=== PATIENT | male | born 1945 | race Caucasian/White ===

== ENCOUNTER 2022-09-02 19:12 | Inpatient (IN) ==
[2022-09-02] MEDS ORDERED: methylPREDNISolone 125 MG/2 ML VIAL IV STA (19:28)
[2022-09-02] MEDS ORDERED: diphenhydrAMINE 50 MG/ML VIAL IV STA (19:28)
[2022-09-02] MEDS ORDERED: diphenhydrAMINE 50 MG/ML VIAL ONE (19:32)
--- NOTE | 2022-09-02 19:36 | Emergency Department Note ---
Impression & Plan Cerebrovascular accident, Stroke-like symptoms, HTN (hypertension) ED Provider Note NAME: BEN DEWITT AGE: 77 SEX: M : 1945 ARRIVES VIA: Walk-In INFORMANT: Patient ED PROVIDER(S): Roni Milner DO CHIEF COMPLAINT: Left-sided weakness and paresthesias HPI: Patient is a 77-year-old male who presents ER for left-sided weakness and paresthesias. Patient notes that this started around 530 today. He is having some trouble ambulating. It has waxed and waned once. He notes his symptoms have nearly resolved at this point. Denies any chest pain or shortness of breath. No nausea, vomiting, or diarrhea. No dysuria, urgency, or frequency. PAST MEDICAL HISTORY:See Below PAST SURGICAL HISTORY:See Below FAMILY HISTORY:See Below SOCIAL HISTORY:See Below HOME MEDICATIONS:See Below ALLERGIES:See Below VITALS:See Below PHYSICAL EXAMINATION: GENERAL: Sitting up in bed, alert, well appearing, well nourished, no distress, non-toxic EYE EXAM: normal conjunctiva. PERRL and EOM's intact. OROPHARYNX: no exudate, no erythema, lips, buccal mucosa, and tongue normal and mucous membranes are moist NECK: supple, no nuchal rigidity, no adenopathy, non-tender LUNGS: Clear to auscultation. Normal chest wall mechanics HEART: no murmurs, S1 normal and S2 normal ABDOMEN: abdomen soft, non-tender, normo-active bowel sounds, no masses, no rebound or guarding. UPPER EXTREMITIES: upper extremities are grossly normal. LOWER EXTREMITIES: No pitting edema. NEURO EXAM: Normal sensorium, cranial nerves II-XII intact, normal speech, no weakness of arms, no weakness of legs. No drift. Finger to nose intact. Gross sensation intact. MEDICAL DECISION MAKING: Patient states that his 37-year-old male who presents ER for left-sided weakness and paresthesias which have been waxing and waning. Upon presentation he notes that have resolved. He was hypertensive. IV was established blood work was obtained. External records reviewed. BMP along LFTs bilirubin was unre markable. COVID was negative. CT of the as well as angios of the head neck showed a P1 segment of occlusion of the right LACE PINNER of undetermined time. Stroke alert was called and he was evaluated by [facility] telestroke neurology Dr. Kevan Platt. He recommended holding on TNK. Recommended permissive hypertension and oral Plavix. Patient was updated bedside. He was admitted to the hospitalist for further evaluation management and treatment. Triage Nursing notes reviewed. Limited review of prior medical records performed Vital Signs: reviewed and remarkable for no significant abnormalities Differential diagnosis: Differential Diagnosis includes but is not limited to ischemic Stroke, hemorrhagic stroke, bells palsy, mass, neoplasm, migraine headache, seizure, subarachnoid hemorrhage, TIA, and transient global amnesia. ER treatment provided: See below Diagnostics interpreted by me include EKG and cardiac monitoring as listed below: -Cardiac Monitoring: An order was placed for continuous cardiac monitoring. The monitor shows a rate of 90 with sinus rhythm. -ECG: Sinus rhythm rate 89 Normal axis PVC QTc 445 -Laboratory studies:Interpreted by me as stated above in MDM and shown below. Imaging studies: Xrays: As interpreted by me: Portable AP upright 1 view of the chest shows no focal infiltrate CTs show: CT angios of the head and neck as described above in MDM Consultation(s): As described in [facility] Procedures:none Critical Care: None Past Med/Surg History Medical History AAA (abdominal aortic aneurysm) "About 4 cm" --- follows Dr. Francisco [id number] CAD (coronary artery disease) S/p 4 vessel CABG 2001 Reports 100% occluded arteries x 2 per his most recent cath (2017 [facility]) medical management DDD (degenerative disc disease), lumbar DM type 2 (diabetes mellitus, type 2) IDDM Enlarged prostate History of cardiac murmur as a child History of depression HLD (hyperlipidemia) [place] (hard of hearing) HTN (hypertension) IBS (irritable bowel syndrome) Kidney stones Osteoarthritis TMJ (temporomandibular joint disorder) hx, several years ago, never locked. jaw pain and clicked at times. Surgical History History of ankle surgery Left History of appendectomy History of cardiac catheterization last cath ~02/2020 for [facility] -- no stents History of colonoscopy History of four vessel coronary artery bypass graft 2001 [facility] History of tonsillectomy Family History Other No family history of adverse response to anesthesia Social History (Updated 09/02/22 @ 21:37 by Brent Catalan MD) Smoking Status: Former smoker Second Hand Exposure: No; Do You Dip or Chew Tobacco: No; Hx Alcohol Use: Yes Hx Substance Use: No Preferred Language: Turkish Communication Ability: Effective 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 Beliefs That Will Affect Care: None Current Living Situation: Alone Feels Safe at Home: Yes Assistive Devices: Glasses Allergies Allergies Allergy/AdvReac Type Severity Reaction Status Date / Time Iodinated Contrast Media Allergy Unknown UNKNOWN Verified 09/02/22 19:50 PER [facility] MED LIST lisinopril AdvReac Intermediate Cough Verified 09/02/22 19:50 IVP DYE AdvReac Intermediate CHILLS/CAROLA Uncoded 09/02/22 19:50 RS Home Meds Home Medications Medication Instructions Recorded Confirmed amlodipine 5 mg tablet 5 mg PO HS 02/29/20 09/02/22 aspirin 81 mg tablet,delayed 81 mg PO HS 02/29/20 09/02/22 release (Ayanna Low Dose Aspirin) atorvastatin 80 mg tablet 80 mg PO HS 02/29/20 09/02/22 cholecalciferol (vitamin D3) 50 50 mcg PO HS 02/29/20 09/02/22 mcg (2,000 unit) tablet (Vitamin D3) cyanocobalamin (vitamin B-12) 2,000 mcg sublingual HS 02/29/20 09/02/22 1,000 mcg sublingual tablet insulin glargine 100 unit/mL (3 50 unit subcut HS 02/29/20 09/02/22 mL) subcutaneous pen (Basaglar KwikPen U-100 Insulin) losartan 100 mg tablet 100 mg PO HS 02/29/20 09/02/22 metformin 500 mg tablet,extended 1,000 mg PO HS 02/29/20 09/02/22 release 24 hr metoprolol succinate 25 mg 25 mg PO HS 02/29/20 09/02/22 tablet,extended release 24 hr omega 1-svp-tjz-fish oil 300 1 cap PO HS 02/29/20 09/02/22 mg-1,000 mg capsule (Fish Oil) coenzyme Q10 100 mg capsule 100 mg PO HS 09/02/22 09/02/22 (CoQ-10) fluticasone 250 mcg-salmeterol 50 1 inh inhalation BID 09/02/22 09/02/22 mcg/dose blistr powdr for inhalation (Advair Diskus) isosorbide mononitrate 30 mg 30 mg PO HS 09/02/22 09/02/22 tablet,extended release 24 hr ketoconazole 2 % topical cream 1 applic topical BID 09/02/22 09/02/22 multivitamin 1 tab PO HS 09/02/22 09/02/22 Results & Data (ED) Vital Signs Vital Signs - 24 hr 09/02/22 19:15 09/02/22 19:48 09/02/22 19:51 Temperature 37 C Temperature Source Temporal Artery Scan Pulse Rate 94 H 85 Pulse Rate [Radial] 82 Pulse Rate from SpO2 Sensor Pulse Rhythm Regular Pulse Rhythm [Radial] Regular Pulse Strength [Radial] Normal Respiratory Rate 17 20 22 Respiratory Effort / Characteristics Non-Labored Spontaneous Respiratory Depth Normal Respiratory Pattern Regular Blood Pressure 195/91 H Blood Pressure [Left Arm] 196/106 H Blood Pressure Mean 125 Blood Pressure Mean [Left Arm] 136 Blood Pressure Position [Left Arm] Lying Pulse Oximetry 95 97 96 Oxygen Delivery Method Room Air Room Air Room Air Sepsis Recent Fever Within 48 Hours No Sepsis New/Unexplained Change in Mental Status No Sepsis Action Taken by Nursing No Action Required 09/02/22 19:55 09/02/22 19:54 09/02/22 19:56 Temperature Temperature Source Pulse Rate 79 76 Pulse Rate [Radial] Pulse Rate from SpO2 Sensor 77 Pulse Rhythm Pulse Rhythm [Radial] Pulse Strength [Radial] Respiratory Rate 23 Respiratory Effort / Characteristics Respiratory Depth Respiratory Pattern Blood Pressure 168/86 H Blood Pressure [Left Arm] Blood Pressure Mean 136 Blood Pressure Mean [Left Arm] Blood Pressure Position [Left Arm] Pulse Oximetry 96 Oxygen Delivery Method Sepsis Recent Fever Within 48 Hours Sepsis New/Unexplained Change in Mental Status Sepsis Action Taken by Nursing 09/02/22 19:56 Temperature Temperature Source Pulse Rate 78 Pulse Rate [Radial] Pulse Rate from SpO2 Sensor 78 Pulse Rhythm Pulse Rhythm [Radial] Pulse Strength [Radial] Respiratory Rate 21 Respiratory Effort / Characteristics Respiratory Depth Respiratory Pattern Blood Pressure Blood Pressure [Left Arm] Blood Pressure Mean Blood Pressure Mean [Left Arm] Blood Pressure Position [Left Arm] Pulse Oximetry 96 Oxygen Delivery Method Sepsis Recent Fever Within 48 Hours Sepsis New/Unexplained Change in Mental Status Sepsis Action Taken by Nursing Laboratory Data 09/02/22 19:29 09/02/22 19:29 Lab Results 09/02/22 09/02/22 09/02/22 Range/Units 19:29 19:29 19:29 WBC 7.83 (4.8-10.8) K/ul RBC 4.67 L (4.70-6.10) M/uL Hgb 15.6 (14.0-18.0) g/dl Hct 43.0 (42.0-52.0) % MCV 92.1 (80.0-100.0) fL MCH 33.4 (25.0-34.0) pg MCHC 36.3 H (32.0-36.0) g/dL RDW Std Deviation 41.7 (36.4-46.3) fL RDW Coeff of Jean Pierre 12.5 (11.5-14.5) % Plt Count 153 (130-400) K/uL MPV 9.7 (9.4-12.4) fL PT 10.7 (9.0-12.0) Seconds INR 1.0 (0.9-1.1) APTT 24.6 (21.0-31.0) Seconds PTT Ratio 0.9 Sodium 139 (136-145) mmol/L Potassium 4.0 (3.5-5.1) mmol/L Chloride 108 H (98-107) mmol/L Carbon Dioxide 26 (21-32) mmol/L Anion Gap 5 (3-11) BUN 17 (6-23) mg/dl Creatinine 1.05 (0.6-1.4) mg/dl Est Cr Clr Drug Dosing Not Reportable Est GFR ( Amer) 78.4 ml/min Est GFR (Non-Af Amer) 67.7 ml/min BUN/Creatinine Ratio 16.2 (10-20) Glucose 119 H (70-99(Fasting)) mg/dl Calcium 9.9 (8.6-10.3) mg/dl Magnesium 2.0 (1.7-2.4) mg/dl Total Bilirubin 0.6 (0.2-1.0) mg/dl AST 25 (13-39) U/L ALT 31 (7-52) U/L Alkaline Phosphatase 91 (34-104) U/L Total Protein 7.3 (6.0-8.3) gm/dl Albumin 4.4 (3.4-5.0) gm/dl Globulin 2.9 (2.5-4.0) gm/dl Albumin/Globulin Ratio 1.5 (0.9-2) SARS-CoV-2, RNA, NAAT (NEGATIVE) 09/02/22 Range/Units 20:33 WBC (4.8-10.8) K/ul RBC (4.70-6.10) M/uL Hgb (14.0-18.0) g/dl Hct (42.0-52.0) % MCV (80.0-100.0) fL MCH (25.0-34.0) pg MCHC (32.0-36.0) g/dL RDW Std Deviation (36.4-46.3) fL RDW Coeff of Jean Pierre (11.5-14.5) % Plt Count (130-400) K/uL MPV (9.4-12.4) fL PT (9.0-12.0) Seconds INR (0.9-1.1) APTT (21.0-31.0) Seconds PTT Ratio Sodium (136-145) mmol/L Potassium (3.5-5.1) mmol/L Chloride (98-107) mmol/L Carbon Dioxide (21-32) mmol/L Anion Gap (3-11) BUN (6-23) mg/dl Creatinine (0.6-1.4) mg/dl Est Cr Clr Drug Dosing Est GFR ( Amer) ml/min Est GFR (Non-Af Amer) ml/min BUN/Creatinine Ratio (10-20) Glucose (70-99(Fasting)) mg/dl Calcium (8.6-10.3) mg/dl Magnesium (1.7-2.4) mg/dl Total Bilirubin (0.2-1.0) mg/dl AST (13-39) U/L ALT (7-52) U/L Alkaline Phosphatase (34-104) U/L Total Protein (6.0-8.3) gm/dl Albumin (3.4-5.0) gm/dl Globulin (2.5-4.0) gm/dl Albumin/Globulin Ratio (0.9-2) SARS-CoV-2, RNA, NAAT NEGATIVE (NEGATIVE) Administered Medications Discontinued Medications Clopidogrel Bisulfate (Clopidogrel Bisulfate 300 Mg Tab) 300 mg PO NOW STA Stop: 09/02/22 20:30 Last Admin: 09/02/22 20:35 Dose: 300 mg Documented By: Diphenhydramine HCl (Diphenhydramine 50 Mg/Ml Vial) 25 mg IV NOW STA Stop: 09/02/22 19:29 Last Admin: 09/02/22 19:35 Dose: 25 mg Documented By: SORAIDA Diphenhydramine HCl (Diphenhydramine 50 Mg/Ml Vial) Confirm Administered Dose 50 mg .ROUTE .STK-MED ONE Stop: 09/02/22 19:33 Last Admin: 09/02/22 19:35 Dose: Not Given Documented By: SORAIDA Ioversol (Optiray 320 100ml) 121 ml IV ONCE ONE Stop: 09/02/22 19:47 Last Admin: 09/02/22 19:46 Dose: 121 ml Documented By: FRANKI Methylprednisolone (Methylprednisolone 125 Mg/2 Ml Vial) 125 mg IV NOW STA Stop: 09/02/22 19:29 Last Admin: 09/02/22 19:35 Dose: 125 mg Documented By: SORAIDA Imaging Data Radiologist's Impression: Head CT 09/02/22 19:19 CT angio head w con, CT angio neck with con, CT head/brain wo con CLINICAL HISTORY: 77 years-old Male with cva. Acute stroke like symptoms with right-sided weakness COMPARISON STUDY: None TECHNIQUE: Unenhanced axial CT scan of the brain is performed. Subsequently, following the IV administration of 121 cc of Optiray, CT angiogram of the head and neck was performed from the aortic arch to the skull apex. Images are reviewed in the axial, sagittal, and coronal planes. 3-D MIPS images are created and assessed. IV contrast was administered without complication. All measu rements were obtained according to NASCET criteria. A dose lowering technique was utilized adhering to the principles of ALARA. CT DOSE: 1400.00 mGy.cm FINDINGS: CT BRAIN: There is no acute intracranial hemorrhage, midline shift, hydrocephalus, intracranial mass, territorial ischemia or abnormal extra-axial collections. Involutional changes with chronic microvascular ischemic disease. No abnormal intra-axial or extra-axial enhancement. Mastoid air cells and middle ear cavities are clear. No calvarial fracture. Paranasal sinuses are clear. CT ANGIOGRAM OF THE HEAD AND NECK: Median sternotomy. Atherosclerosis of the thoracic aortic arch. Patent common and internal carotid arteries with mild atherosclerosis of the carotid bulbs. Prominent calcified plaque of the petrous and cavernous segments is noted without high-grade stenosis or occlusion. The bilateral anterior and middle cerebral arteries are also patent. Calcified plaque of the V4 segment right artery causes 50% stenosis. The vertebral arteries are otherwise patent. The basilar and left posterior cerebral artery are also patent with moderate narrowing of the left P1 segment. Focal 1.5 cm occluded portion of the P1 segment right posterior cerebral artery, image 122. Distal reconstitution noted on image 114. There is no aneurysm, high-grade stenosis, or proximal branch occlusion identified. Dural sinuses appear patent. Lung apices are clear. No pneumothorax. 1.2 cm hypodense right thyroid nodule. No acute fracture. IMPRESSION: 1. No acute intracranial abnormality. 2. Age-indeterminate occlusion of the P1 segment right posterior cerebral artery with distal reconstitution. 3. Atherosclerosis without additional occlusion, high-grade stenosis, aneurysm or dissection. 4. Involutional changes with chronic microvascular ischemic disease. ACT 112: Negative or not required by law. The above report was generated using voice recognition software. It may contain grammatical, syntax or spelling errors. Electronically signed by: Ector Ansari M.D. 09/02/2022 8:05 PM Head CTA 09/02/22 19:22 CT angio head w con, CT angio neck with con, CT head/brain wo con CLINICAL HISTORY: 77 years-old Male with cva. Acute stroke like symptoms with right-sided weakness COMPARISON STUDY: None TECHNIQUE: Unenhanced axial CT scan of the brain is performed. Subsequently, following the IV administration of 121 cc of Optiray, CT angiogram of the head and neck was performed from the aortic arch to the skull apex. Images are reviewed in the axial, sagittal, and coronal planes. 3-D MIPS images are created and assessed. IV contrast was administered without complication. All measurements were obtained according to NASCET criteria. A dose lowering technique was utilized adhering to the principles of ALARA. CT DOSE: 1400.00 mGy.cm FINDINGS: CT BRAIN: There is no acute intracranial hemorrhage, midline shift, hydrocephalus, intracranial mass, territorial ischemia or abnormal extra-axial collections. Involutional changes with chronic microvascular ischemic disease. No abnormal intra-axial or extra-axial enhancement. Mastoid air cells and middle ear cavities are clear. No calvarial fracture. Paranasal sinuses are clear. CT ANGIOGRAM OF THE HEAD AND NECK: Median sternotomy. Atherosclerosis of the thoracic aortic arch. Patent common and internal carotid arteries with mild atherosclerosis of the carotid bulbs. Prominent calcified plaque of the petrous and cavernous segments is noted without high-grade stenosis or occlusion. The bilateral anterior and middle cerebral arteries are also patent. Calcified plaque of the V4 segment right artery causes 50% stenosis. The vertebral arteries are otherwise patent. The basilar and left posterior cerebral artery are also patent with moderate narrowing of the left P1 segment. Focal 1.5 cm occluded portion of the P1 segment right posterior cerebral artery, image 122. Distal reconstitution noted on image 114. There is no aneurysm, high-grade stenosis, or proximal branch occlusion identified. Dural sinuses appear patent. Lung apices are clear. No pneumothorax. 1.2 cm hypodense right thyroid nodule. No acute fracture. IMPRESSION: 1. No acute intracranial abnormality. 2. Age-indeterminate occlusion of the P1 segment right posterior cerebral artery with distal reconstitution. 3. Atherosclerosis without additional occlusion, high-grade stenosis, aneurysm or dissection. 4. Involutional changes with chronic microvascular ischemic disease. ACT 112: Negative or not required by law. The above report was generated using voice recognition software. It may contain grammatical, syntax or spelling errors. Electronically signed by: Ector Ansari M.D. 09/02/2022 8:05 PM Neck CTA 09/02/22 19:31 CT angio head w con, CT angio neck with con, CT head/brain wo con CLINICAL HISTORY: 77 years-old Male with cva. Acute stroke like symptoms with right-sided weakness COMPARISON STUDY: None TECHNIQUE: Unenhanced axial CT scan of the brain is performed. Subsequently, following the IV administration of 121 cc of Optiray, CT angiogram of the head and neck was performed from the aortic arch to the skull apex. Images are reviewed in the axial, sagittal, and coronal planes. 3-D MIPS images are created and assessed. IV contrast was administered without complication. All measurements were obtained according to NASCET criteria. A dose lowering technique was utilized adhering to the principles of ALARA. CT DOSE: 1400.00 mGy.cm FINDINGS: CT BRAIN: There is no acute intracranial hemorrhage, midline shift, hydrocephalus, intracranial mass, territorial ischemia or abnormal extra-axial collections. Involutional changes with chronic microvascular ischemic disease. No abnormal intra-axial or extra-axial enhancement. Mastoid air cells and middle ear cavities are clear. No calvarial fracture. Paranasal sinuses are clear. CT ANGIOGRAM OF THE HEAD AND NECK: Median sternotomy. Atherosclerosis of the thoracic aortic arch. Patent common and internal carotid arteries with mild atherosclerosis of the carotid bulbs. Prominent calcified plaque of the petrous and cavernous segments is noted without high-grade stenosis or occlusion. The bilateral anterior and middle cerebral arteries are also patent. Calcified plaque of the V4 segment right artery causes 50% stenosis. The vertebral arteries are otherwise patent. The basilar and left posterior cerebral artery are also patent with moderate narrow ing of the left P1 segment. Focal 1.5 cm occluded portion of the P1 segment right posterior cerebral artery, image 122. Distal reconstitution noted on image 114. There is no aneurysm, high-grade stenosis, or proximal branch occlusion identified. Dural sinuses appear patent. Lung apices are clear. No pneumothorax. 1.2 cm hypodense right thyroid nodule. No acute fracture. IMPRESSION: 1. No acute intracranial abnormality. 2. Age-indeterminate occlusion of the P1 segment right posterior cerebral artery with distal reconstitution. 3. Atherosclerosis without additional occlusion, high-grade stenosis, aneurysm or dissection. 4. Involutional changes with chronic microvascular ischemic disease. ACT 112: Negative or not required by law. The above report was generated using voice recognition software. It may contain grammatical, syntax or spelling errors. Electronically signed by: Ector Ansari M.D. 09/02/2022 8:05 PM Chest X-Ray 09/02/22 19:32 XR chest 1V portable HISTORY: 77 years-old Male cva acute strokelike symptoms COMPARISON: None TECHNIQUE: AP view of the chest FINDINGS: Cardiac silhouette is enlarged. Median sternotomy. Mild right hemidiaphragmatic elevation. No pneumothorax, pleural effusion, airspace consolidation or pulmonary edema. Bones appear grossly intact. IMPRESSION: No acute process. ACT 112: Negative or not required by law. The above report was generated using voice recognition software. It may contain grammatical, syntax or spelling errors. Electronically signed by: Ector Ansari M.D. 09/02/2022 7:54 PM Discharge Plan Visit Data Chief Complaint: Stroke/CVA Symptoms Stated Complaint: NUMB L SIDE,SLURRED SPEECH,L FACE NUMB ED Provider: Roni Milner Discharge Problem: Cerebrovascular accident, Stroke-like symptoms, HTN (hypertension) Patient Disposition: Admitted As Inpatient Discharge Instructions Interventions: ED Discharge Assessment Last Done: 09/02/22 21:47 Forms Stand Alone Forms: My [facility] Prescriptions Prescriptions: No Action atorvastatin 80 mg tablet 80 mg PO HS amlodipine 5 mg tablet 5 mg PO HS metoprolol succinate 25 mg tablet extended release 24 hr 25 mg PO HS metformin 500 mg tablet extended release 24 hr 1,000 mg PO HS aspirin [Ayanna Low Dose Aspirin] 81 mg Tablet,Delayed Release (Dr/Ec) 81 mg PO HS cyanocobalamin (vitamin B-12) 1,000 mcg Tablet, Sublingual 2,000 mcg SUBLINGUAL HS losartan 100 mg tablet 100 mg PO HS insulin glargine [Basaglar KwikPen U-100 Insulin] 100 unit/mL (3 mL) Insulin Pen 50 unit SUBCUT HS cholecalciferol (vitamin D3) [Vitamin D3] 50 mcg (2,000 unit) Tablet 50 mcg PO HS omega 6-yjh-yga-fish oil [Fish Oil] 300-1,000 mg Capsule 1 cap PO HS multivitamin Tablet 1 tab PO HS fluticasone propion-salmeterol [Advair Diskus] 250-50 mcg/dose blister with device 1 inh INHALATION BID isosorbide mononitrate 30 mg tablet extended release 24 hr 30 mg PO HS ketoconazole 2 % Cream 1 applic TOPICAL BID Rx Instructions: APPLY TO GROIN AREA coenzyme Q10 [CoQ-10] 100 mg Capsule 100 mg PO HS Referrals Referrals: Alok Amaya, [Primary Care Provider] -
[2022-09-02] MEDS ORDERED: OPTIRAY 320 100ml IV ONE (19:46)
[2022-09-02 19:51] LABS: Hemoglobin 15.6 g/dl (14.0-18.0); Mean Corpuscular Hemoglobin 33.4 pg (25.0-34.0); Mean Corpuscular Hgb Conc 36.3 g/dL (32.0-36.0); Mean Corpuscular Volume 92.1 fL (80.0-100.0); Mean Platelet Volume 9.7 fL (9.4-12.4); Platelet Count 153 K/uL (130-400); RDW Coefficient of Variation 12.5 % (11.5-14.5); RDW Standard Deviation 41.7 fL (36.4-46.3); Red Blood Count 4.67 M/uL (4.70-6.10); White Blood Count 7.83 K/ul (4.8-10.8)
--- NOTE | 2022-09-02 19:55 | XRay Report ---
XR chest 1V portable HISTORY: 77 years-old Male cva acute strokelike symptoms COMPARISON: None TECHNIQUE: AP view of the chest FINDINGS: Cardiac silhouette is enlarged. Median sternotomy. Mild right hemidiaphragmatic elevation. No pneumot horax, pleural effusion, airspace consolidation or pulmonary edema. Bones appear grossly intact. IMPRESSION: No acute process. ACT 112: Negative or not required by law. The above report was generated using voice recognition software. It may contain grammatical, syntax o r spelling errors. Electronically signed by: Ector Ansari M.D. 09/02/2022 7:54 PM
[2022-09-02 20:03] LABS: Alanine Aminotransferase 31 U/L (7-52); Albumin Globulin Ratio 1.5 (0.9-2); Albumin Level 4.4 gm/dl (3.4-5.0); Alkaline Phosphatase 91 U/L (34-104); Anion Gap 5 (3-11); Aspartate Aminotransferase 25 U/L (13-39); BUN Creatinine Ratio 16.2 (10-20); Bilirubin,Total 0.6 mg/dl (0.2-1.0); Blood Urea Nitrogen 17 mg/dl (6-23); Calcium 9.9 mg/dl (8.6-10.3); Carbon Dioxide 26 mmol/L (21-32); Chloride 108 mmol/L (98-107); Est GFR (African American) 78.4 ml/min; Est GFR (Non-African American) 67.7 ml/min; Globulin 2.9 gm/dl (2.5-4.0); Glucose 119 mg/dl (70-99(Fasting)); Sodium 139 mmol/L (136-145); Total Protein 7.3 gm/dl (6.0-8.3)
--- NOTE | 2022-09-02 20:07 | CT Scan Report ---
CT angio head w con, CT angio neck with con, CT head/brain wo con CLINICAL HISTORY: 77 years-old Male with cva. Acute stroke like symptoms with right-sided weakness COMPARISON STUDY: None TECHNIQUE: Unenhanced axial CT scan of the brain is performed. Subsequently, following the IV adminis tration of 121 cc of Optiray, CT angiogram of the head and neck was performed from the aortic arch to the skull apex. Images are reviewed in the axial, sagittal, and coronal planes. 3-D MIPS images are created and assessed. IV contrast was administered without complication. All measurements were obtain ed according to NASCET criteria. A dose lowering technique was utilized adhering to the principles of ALARA. CT DOSE: 1400.00 mGy.cm FINDINGS: CT BRAIN: There is no acute intracranial hemorrhage, midline shift, hydrocephalus, intracranial mass, territori al ischemia or abnormal extra-axial collections. Involutional changes with chronic microvascular isch emic disease. No abnormal intra-axial or extra-axial enhancement. Mastoid air cells and middle ear c avities are clear. No calvarial fracture. Paranasal sinuses are clear. CT ANGIOGRAM OF THE HEAD AND NECK: Median sternotomy. Atherosclerosis of the thoracic aortic arch. Patent common and internal carotid ar teries with mild atherosclerosis of the carotid bulbs. Prominent calcified plaque of the petrous and cavernous segments is noted without high-grade stenosis or occlusion. The bilateral anterior and midd le cerebral arteries are also patent. Calcified plaque of the V4 segment right artery causes 50% sten osis. The vertebral arteries are otherwise patent. The basilar and left posterior cerebral artery are also patent with moderate narrowing of the left P1 segment. Focal 1.5 cm occluded portion of the P1 segment right posterior cerebral artery, image 122. Distal reconstitution noted on image 114. There i s no aneurysm, high-grade stenosis, or proximal branch occlusion identified. Dural sinuses appear pat ent. Lung apices are clear. No pneumothorax. 1.2 cm hypodense right thyroid nodule. No acute fracture. IMPRESSION: 1. No acute intracranial abnormality. 2. Age-indeterminate occlusion of the P1 segment right posterior cerebral artery with distal reconsti tution. 3. Atherosclerosis without additional occlusion, high-grade stenosis, aneurysm or dissection. 4. Involutional changes with chronic microvascular ischemic disease. ACT 112: Negative or not required by law. The above report was generated using voice recognition software. It may contain grammatical, syntax o r spelling errors. Electronically signed by: Ector Ansari M.D. 09/02/2022 8:05 PM
[2022-09-02 20:17] LABS: Partial Thromboplastin Ratio 0.9; Partial Thromboplastin Time 24.6 Seconds (21.0-31.0); Prothrombin Time 10.7 Seconds (9.0-12.0)
[2022-09-02] MEDS ORDERED: CLOPIDOGREL BISULFATE 300 MG TAB PO STA (20:29)
--- NOTE | 2022-09-02 21:45 | History & Physical Report ---
Date of Service September 02, 2022 Assessment & Plan (1) Stroke-like symptoms: Plan: 77-year-old male with past med significant for type 2 diabetes, hyperlipidemia, AAA, hypertension, exertional angina, s/p aortocoronary bypass, chronic diastolic CHF, presents with strokelike symptoms which are resolved now status s/p stroke alert. As per ER stroke neurology recommended MRI scan bedrest, permissive hypertension and was loaded with Plavix. Strokelike symptoms Load with Plavix which will be continued Patient on aspirin and statin We will will do stroke protocol We will follow MRI scan and echocardiogram Neuro consult in a.m. Speech evaluation PT OT evaluation Close monitoring telemetry. Hypertension We will hold amlodipine and losartan to allow for permissive hypertension Continue metoprolol with holding parameters Monitor the blood pressure. Type 2 diabetes We will follow HbA1c levels We will cut back Lantus to 25 units nightly as patient is n.p.o. Insulin sliding scale Pharmacy consult. CAD stable S/p aortocoronary bypass On aspirin statin and beta-vaughn Hyperlipidemia On high-dose statin We will follow fasting lipid profile. Chronic diastolic CHF We will monitor for volume overload. DVT prophylaxis SCDs. Disposition Close monitoring telemetry. Full code. History of Present Illness Chief Complaint: Strokelike symptoms Primary Care Provider: Alok Amaya, This is 77-year-old male with past medical history significant for type 2 diabetes, hyperlipidemia, AAA, hypertension, exertional angina, chronic diastolic CHF, B12 deficiency, vitamin D deficiency, s/p aortocoronary bypass, asbestos exposure, history of tobacco abuse, history of positive PPD presents with paresthesias and numbness on the left side of the body started at 5:30 PM today and lasted for about half hour. It came back again but again resolved. Since last 1 week he is also having some left eye vision problems on and off but the vision is okay now. During the episode he felt some weakness in the left side but thinks he can ambulate okay now. Couple of days ago he had headache but got better now. When he bends down he has some lightheadedness. No earaches, no runny nose, no sore throat, no fevers, no difficulty swallowing. No fever or chills. No chest pain or shortness of breath. No nausea or vomitings, no abdominal pain, normal bowel and bladder movements. No swelling in the legs. Currently resting comfortably and hemodynamically stable Allergies Allergy/AdvReac Type Severity Reaction Status Date / Time Iodinated Contrast Media Allergy Unknown UNKNOWN Verified 09/02/22 19:50 PER [facility] MED LIST lisinopril AdvReac Intermediate Cough Verified 09/02/22 19:50 IVP DYE AdvReac Intermediate CHILLS/CAROLA Uncoded 09/02/22 19:50 RS Home Medications Medication Instructions Recorded Confirmed Type amlodipine 5 mg tablet 5 mg PO HS 02/29/20 09/02/22 History aspirin 81 mg tablet,delayed 81 mg PO HS 02/29/20 09/02/22 History release (Ayanna Low Dose Aspirin) atorvastatin 80 mg tablet 80 mg PO HS 02/29/20 09/02/22 History cholecalciferol (vitamin D3) 50 50 mcg PO HS 02/29/20 09/02/22 History mcg (2,000 unit) tablet (Vitamin D3) cyanocobalamin (vitamin B-12) 2,000 mcg sublingual HS 02/29/20 09/02/22 History 1,000 mcg sublingual tablet insulin glargine 100 unit/mL (3 50 unit subcut HS 02/29/20 09/02/22 History mL) subcutaneous pen (Basaglar KwikPen U-100 Insulin) losartan 100 mg tablet 100 mg PO HS 02/29/20 09/02/22 History metformin 500 mg tablet,extended 1,000 mg PO HS 02/29/20 09/02/22 History release 24 hr metoprolol succinate 25 mg 25 mg PO HS 02/29/20 09/02/22 History tablet,extended release 24 hr omega 9-[id number]-[id number]-fish oil 300 1 cap PO HS 02/29/20 09/02/22 History mg-1,000 mg capsule (Fish Oil) coenzyme Q10 100 mg capsule 100 mg PO HS 09/02/22 09/02/22 History (CoQ-10) fluticasone 250 mcg-salmeterol 50 1 inh inhalation BID 09/02/22 09/02/22 History mcg/dose blistr powdr for inhalation (Advair Diskus) isosorbide mononitrate 30 mg 30 mg PO HS 09/02/22 09/02/22 History tablet,extended release 24 hr ketoconazole 2 % topical cream 1 applic topical BID 09/02/22 09/02/22 History multivitamin 1 tab PO HS 09/02/22 09/02/22 History Past Med/Surg History Medical History AAA (abdominal aortic aneurysm) "About 4 cm" --- follows Dr. Francisco [id number] CAD (coronary artery disease) S/p 4 vessel CABG 2001 Reports 100% occluded arteries x 2 per his most recent cath (2017 [facility]) medical management DDD (degenerative disc disease), lumbar DM type 2 (diabetes mellitus, type 2) IDDM Enlarged prostate History of cardiac murmur as a child History of depression HLD (hyperlipidemia) [employer] (hard of hearing) HTN (hypertension) IBS (irritable bowel syndrome) Kidney stones Osteoarthritis TMJ (temporomandibular joint disorder) hx, several years ago, never locked. jaw pain and clicked at times. Surgical History History of ankle surgery Left History of appendectomy History of cardiac catheterization last cath ~02/2020 for [facility] -- no stents History of colonoscopy History of four vessel coronary artery bypass graft 2001 [facility] History of tonsillectomy Family History Other No family history of adverse response to anesthesia Social History (Updated 09/02/22 @ 21:37 by Bretn Catalan MD) Smoking Status: Former smoker Second Hand Exposure: No; Do You Dip or Chew Tobacco: No; Hx Alcohol Use: Yes Hx Substance Use: No Preferred Language: Colombian Communication Ability: Effective Enamel Shader Required: No Beliefs That Will Affect Care: None Current Living Situation: Alone Feels Safe at Home: Yes Assistive Devices: Glasses Review of Systems Review of Systems: All systems reviewed & are unremarkable except as noted in Subjective Physical Exam Physical Exam: NEEDS EDITING General- adult Head- atraumatic Eyes- PERRL, EOMI, ENT- oropharynx clear Neck- supple, no JVD, ; carotids +2/2, no bruits appreciated Lungs- clear to auscultation and percussion Heart- regular rhythm; no murmur, no gallop, no rub appreciated Abdomen- normal bowel sounds, soft, nontender, no masses or hepatosplenomegaly Extremities- no pretibial edema, no calf tenderness; peripheral pulses intact Neuro- alert, oriented x 3; PERRL, EOMI; no facial palsy; no dysarthria; motor 5/5 bilaterally; coordniation of movements ormal, no pronator drift, sensations intact, can raise and hold lower extremities Skin- warm & dry Results & Data Results & Data Vital Signs (Past 12 Hours) Vital Signs Temp Pulse Pulse Resp BP BP Pulse Ox 09/02/22 19:56 78 21 96 09/02/22 19:56 168/86 H 09/02/22 19:54 76 23 96 09/02/22 19:55 79 09/02/22 19:51 82 22 196/106 H 96 09/02/22 19:48 85 20 97 09/02/22 19:15 37 C 94 H 17 195/91 H 95 O2 Del Method 09/02/22 19:56 09/02/22 19:56 09/02/22 19:54 09/02/22 19:55 09/02/22 19:51 Room Air 09/02/22 19:48 Room Air 09/02/22 19:15 Room Air Diagnostic Findings Laboratory Results WBC 7.83 K/ul (4.8-10.8) 09/02/22 19: RBC 4.67 M/uL (4.70-6.10) L 09/02/22 19:29 Hgb 15.6 g/dl (14.0-18.0) 09/02/22 19:29 Hct 43.0 % (42.0-52.0) 09/02/22 19: MCV 92.1 fL (80.0-100.0) 09/02/22 19:29 MCH 33.4 pg (25.0-34.0) 09/02/22 19: MCHC 36.3 g/dL (32.0-36.0) H 09/02/22 19:29 RDW Std Deviation 41.7 fL (36.4-46.3) 09/02/22 19: RDW Coeff of Jean Pierre 12.5 % (11.5-14.5) 09/02/22 19: Plt Count 153 K/uL (130-400) 09/02/22 19:29 MPV 9.7 fL (9.4-12.4) 09/02/22 19: PT 10.7 Seconds (9.0-12.0) 09/02/22 19: INR 1.0 (0.9-1.1) 09/02/22 19: APTT 24.6 Seconds (21.0-31.0) 09/02/22: PTT Ratio 0.9 09/02/22 19: Sodium 139 mmol/L (136-145) 09/02/22 19: Potassium 4.0 mmol/L (3.5-5.1) 09/02/22: Chloride 108 mmol/L (98-107) H 09/02/22 19: Carbon Dioxide 26 mmol/L (21-32) 09/02/22: Anion Gap 5 (3-11) 09/02/22: BUN 17 mg/dl (6-23) 09/02/22: Creatinine 1.05 mg/dl (0.6-1.4) 09/02/22: Est Cr Clr Drug Dosing Not Reportable 09/02/22: Est GFR ( Amer) 78.4 ml/min 09/02/22: Est GFR (Non-Af Amer) 67.7 ml/min 09/02/22: BUN/Creatinine Ratio 16.2 (10-20) 09/02/22 19: Glucose 119 mg/dl (70-99(Fasting)) H 09/02/22 19:29 Calcium 9.9 mg/dl (8.6-10.3) 09/02/22: Magnesium 2.0 mg/dl (1.7-2.4) 09/02/22: Total Bilirubin 0.6 mg/dl (0.2-1.0) 09/02/22 19: AST 25 U/L (13-39) 09/02/22 19:29 ALT 31 U/L (7-52) 09/02/22 19:29 Alkaline Phosphatase 91 U/L (34-104) 09/02/22: Total Protein 7.3 gm/dl (6.0-8.3) 09/02/22 19:29 Albumin 4.4 gm/dl (3.4-5.0) 09/02/22 19:29 Globulin 2.9 gm/dl (2.5-4.0) 09/02/22 19:29 Albumin/Globulin Ratio 1.5 (0.9-2) 09/02/22 19:29 SARS-CoV-2, RNA, NAAT NEGATIVE (NEGATIVE) 09/02/22 20:[address] 09/02/22 19:19 CT angio head w con, CT angio neck with con, CT head/brain wo con CLINICAL HISTORY: 77 years-old Male with cva. Acute stroke like symptoms with right-sided weakness COMPARISON STUDY: None TECHNIQUE: Unenhanced axial CT scan of the brain is performed. Subsequently, following the IV administration of 121 cc of Optiray, CT angiogram of the head and neck was performed from the aortic arch to the skull apex. Images are reviewed in the axial, sagittal, and coronal planes. 3-D MIPS images are created and assessed. IV contrast was administered without complication. All measurements were obtained according to NASCET criteria. A dose lowering technique was utilized adhering to the principles of ALARA. CT DOSE: 1400.00 mGy.cm FINDINGS: CT BRAIN: There is no acute intracranial hemorrhage, midline shift, hydrocephalus, intracranial mass, territorial ischemia or abnormal extra-axial collections. Involutional changes with chronic microvascular ischemic disease. No abnormal intra-axial or extra-axial enhancement. Mastoid air cells and middle ear cavities are clear. No calvarial fracture. Paranasal sinuses are clear. CT ANGIOGRAM OF THE HEAD AND NECK: Median sternotomy. Atherosclerosis of the thoracic aortic arch. Patent common and internal carotid arteries with mild atherosclerosis of the carotid bulbs. Prominent calcified plaque of the petrous and cavernous segments is noted without high-grade stenosis or occlusion. The bilateral anterior and middle cerebral arteries are also patent. Calcified plaque of the V4 segment right artery causes 50% stenosis. The vertebral arteries are otherwise patent. The basilar and left posterior cerebral artery are also patent with moderate narrowing of the left P1 segment. Focal 1.5 cm occluded portion of the P1 segment right posterior cerebral artery, image 122. Distal reconstitution noted on image 114. There is no aneurysm, high-grade stenosis, or proximal branch occlusion identified. Dural sinuses appear patent. Lung apices are clear. No pneumothorax. 1.2 cm hypodense right thyroid nodule. No acute fracture. IMPRESSION: 1. No acute intracranial abnormality. 2. Age-indeterminate occlusion of the P1 segment right posterior cerebral artery with distal reconstitution. 3. Atherosclerosis without additional occlusion, high-grade stenosis, aneurysm or dissection. 4. Involutional changes with chronic microvascular ischemic disease. ACT 112: Negative or not required by law. The above report was generated using voice recognition software. It may contain grammatical, syntax or spelling errors. Electronically signed by: Ector Ansari M.D. 09/02/2022 8:05 PM Head CTA 09/02/22 19:22 CT angio head w con, CT angio neck with con, CT head/brain wo con CLINICAL HISTORY: 77 years-old Male with cva. Acute stroke like symptoms with right-sided weakness COMPARISON STUDY: None TECHNIQUE: Unenhanced axial CT scan of the brain is performed. Subsequently, following the IV administration of 121 cc of Optiray, CT angiogram of the head and neck was performed from the aortic arch to the skull apex. Images are reviewed in the axial, sagittal, and coronal planes. 3-D MIPS images are created and assessed. IV contrast was administered without complication. All measurements were obtained according to NASCET criteria. A dose lowering technique was utilized adhering to the principles of ALARA. CT DOSE: 1400.00 mGy.cm FINDINGS: CT BRAIN: There is no acute intracranial hemorrhage, midline shift, hydrocephalus, intracranial mass, territorial ischemia or abnormal extra-axial collections. Involutional changes with chronic microvascular ischemic disease. No abnormal intra-axial or extra-axial enhancement. Mastoid air cells and middle ear cavities are clear. No calvarial fracture. Paranasal sinuses are clear. CT ANGIOGRAM OF THE HEAD AND NECK: Median sternotomy. Atherosclerosis of the thoracic aortic arch. Patent common and internal carotid arteries with mild atherosclerosis of the carotid bulbs. Prominent calcified plaque of the petrous and cavernous segments is noted without high-grade stenosis or occlusion. The bilateral anterior and middle cerebral arteries are also patent. Calcified plaque of the V4 segment right artery causes 50% stenosis. The vertebral arteries are otherwise patent. The basilar and left posterior cerebral artery are also patent with moderate narrowing of the left P1 segment. Focal 1.5 cm occluded portion of the P1 segment right posterior cerebral artery, image 122. Distal reconstitution noted on image 114. There is no aneurysm, high-grade stenosis, or proximal branch occlusion identified. Dural sinuses appear patent. Lung apices are clear. No pneumothorax. 1.2 cm hypodense right thyroid nodule. No acute fracture. IMPRESSION: 1. No acute intracranial abnormality. 2. Age-indeterminate occlusion of the P1 segment right posterior cerebral artery with distal reconstitution. 3. Atherosclerosis without additional occlusion, high-grade stenosis, aneurysm or dissection. 4. Involutional changes with chronic microvascular ischemic disease. ACT 112: Negative or not required by law. The above report was generated using voice recognition software. It may contain grammatical, syntax or spelling errors. Electronically signed by: Ector Ansari M.D. 09/02/2022 8:05 PM Neck CTA 09/02/22 19:31 CT angio head w con, CT angio neck with con, CT head/brain wo con CLINICAL HISTORY: 77 years-old Male with cva. Acute stroke like symptoms with right-sided weakness COMPARISON STUDY: None TECHNIQUE: Unenhanced axial CT scan of the brain is performed. Subsequently, following the IV administration of 121 cc of Optiray, CT angiogram of the head and neck was performed from the aortic arch to the skull apex. Images are reviewed in the axial, sagittal, and coronal planes. 3-D MIPS images are created and assessed. IV contrast was administered without complication. All measurements were obtained according to NASCET criteria. A dose lowering technique was utilized adhering to the principles of ALARA. CT DOSE: 1400.00 mGy.cm FINDINGS: CT BRAIN: There is no acute intracranial hemorrhage, midline shift, hydrocephalus, intracranial mass, territorial ischemia or abnormal extra-axial collections. Involutional changes with chronic microvascular ischemic disease. No abnormal intra-axial or extra-axial enhancement. Mastoid air cells and middle ear cavities are clear. No calvarial fracture. Paranasal sinuses are clear. CT ANGIOGRAM OF THE HEAD AND NECK: Median sternotomy. Atherosclerosis of the thoracic aortic arch. Patent common and internal carotid arteries with mild atherosclerosis of the carotid bulbs. Prominent calcified plaque of the petrous and cavernous segments is noted without high-grade stenosis or occlusion. The bilateral anterior and middle cerebral arteries are also patent. Calcified plaque of the V4 segment right artery causes 50% stenosis. The vertebral arteries are otherwise patent. The basilar and left posterior cerebral artery are also patent with moderate narrowing of the left P1 segment. Focal 1.5 cm occluded portion of the P1 segment right posterior cerebral artery, image 122. Distal reconstitution noted on image 114. There is no aneurysm, high-grade stenosis, or proximal branch occlusion identified. Dural sinuses appear patent. Lung apices are clear. No pneumothorax. 1.2 cm hypodense right thyroid nodule. No acute fracture. IMPRESSION: 1. No acute intracranial abnormality. 2. Age-indeterminate occlusion of the P1 segment right posterior cerebral artery with distal reconstitution. 3. Atherosclerosis without additional occlusion, high-grade stenosis, aneurysm or dissection. 4. Involutional changes with chronic microvascular ischemic disease. ACT 112: Negative or not required by law. The above report was generated using voice recognition software. It may contain grammatical, syntax or spelling errors. Electronically signed by: Ector Ansari M.D. 09/02/2022 8:05 PM Chest X-Ray 09/02/22 19:32 XR chest 1V portable HISTORY: 77 years-old Male cva acute strokelike symptoms COMPARISON: None TECHNIQUE: AP view of the chest FINDINGS: Cardiac silhouette is enlarged. Median sternotomy. Mild right hemidiaphragmatic elevation. No pneumothorax, pleural effusion, airspace consolidation or pulmonary edema. Bones appear grossly intact. IMPRESSION: No acute process. ACT 112: Negative or not required by law. The above report was generated using voice recognition software. It may contain grammatical, syntax or spelling errors. Electronically signed by: Ector Ansari M.D. 09/02/2022 7:54 PM ECG Additional Comments: ECG sinus rhythm with occasional PVCs at a rate of [address] changes seen Code Status & VTE Plan VTE Prophylaxis Plan VTE Prophylaxis will be ordered: Yes
[2022-09-02] MEDS ORDERED: GLUCAGON FOR INJ 1 MG VIAL SQ PRN (23:05)
[2022-09-02] MEDS ORDERED: ASPIRIN 81 MG ECTAB PO SCH (23:05)
[2022-09-02] MEDS ORDERED: PHARMACY GLYCEMIC MGMT CONSULT PRN (23:05)
[2022-09-02] MEDS ORDERED: CYANOCOBALAMIN (B-12) 2,500 MCG TABLET SL SCH (23:05)
[2022-09-02] MEDS ORDERED: POLYETHYLENE (MIRALAX) 17 GM PACK PO PRN (23:05)
[2022-09-02] MEDS ORDERED: GLUCOSE 40% GEL 15 GM TUBE PO PRN (23:05)
[2022-09-02] MEDS ORDERED: GLUCOSE 10 TAB/TUBE PO PRN (23:05)
[2022-09-02] MEDS ORDERED: CARBOHYDRATES FOR HYPOGLYCEMIA PO PRN (23:05)
[2022-09-02] MEDS ORDERED: ATORVASTATIN 40 MG TAB PO SCH (23:05)
[2022-09-02] MEDS ORDERED: NITROGLYCERIN SL 0.4 MG/TAB TAB SL PRN (23:05)
[2022-09-02] MEDS ORDERED: ACETAMINOPHEN 325 MG TAB PO PRN (23:05)
[2022-09-02] MEDS ORDERED: PHARMACIST DISCHARGE MED REC CONSULT PRN (23:05)
[2022-09-02] MEDS ORDERED: DEXTROSE 50% 50 ML SYRINGE IV PRN (23:05)
[2022-09-03] MEDS ORDERED: GADOBUTROL 10ML VIAL IV ONE (00:23)
[2022-09-03] MEDS: SODIUM CHLORIDE 0.9% 1000ML 1,000 ML IV SCH ×2 (00:37→07:41)
[2022-09-03] MEDS: INSULIN ASPART PER UNIT CHARGE SC SCH ×2 (00:49→06:02)
--- NOTE | 2022-09-03 01:05 | Magnetic Resonance Report ---
Exam(s): MRI HEAD W/WO Contrast IV Amt: 10cc gadavist EXAM: MR Head Without and With Intravenous Contrast CLINICAL HISTORY: Reason for exam: stroke like symptoms. TECHNIQUE: Magnetic resonance images of the head/brain without and with intravenous contrast in multiple planes. CONTRAST: Patient received 10cc gadavist of IV contrast COMPARISON: No relevant prior studies available. FINDINGS: Brain: Mild periventricular white matter changes, likely related to chronic microangiopathy. No hemorrhage. No acute infarct. Ventricles: Unremarkable. No ventriculomegaly. Bones/joints: Unremarkable. Sinuses: Unremarkable as visualized. No acute sinusitis. Mastoid air cells: Unremarkable as visualized. No mastoid effusion. Orbits: Unremarkable as visualized. IMPRESSION: Mild periventricular white matter changes, likely related to chronic microangiopathy. Electronically signed by: Paul Fields M.D. 09/03/22 01:04 AM
[2022-09-03 06:14] LABS: Hematocrit (blood only) 40.8 % (42.0-52.0); Hemoglobin 14.9 g/dl (14.0-18.0); Mean Corpuscular Hemoglobin 32.8 pg (25.0-34.0); Mean Corpuscular Hgb Conc 36.5 g/dL (32.0-36.0); Mean Corpuscular Volume 89.9 fL (80.0-100.0); Mean Platelet Volume 10.1 fL (9.4-12.4); Platelet Count 141 K/uL (130-400); RDW Coefficient of Variation 12.3 % (11.5-14.5); RDW Standard Deviation 40.2 fL (36.4-46.3); Red Blood Count 4.54 M/uL (4.70-6.10); White Blood Count 8.39 K/ul (4.8-10.8)
[2022-09-03 06:35] LABS: Immature Granulocytes # (auto) 0.04 K/uL (0.01-0.20); Immature Granulocytes % (auto) 0.5 %; Lymphocytes % (auto) 8.3 %; Monocytes # (auto) 0.04 K/uL (0.11-0.59); Monocytes % (auto) 0.5 %; Neutrophils # (auto) 7.61 K/uL (1.40-6.50); Neutrophils % (auto) 90.7 %
[2022-09-03 06:37] LABS: BUN Creatinine Ratio 19.8 (10-20); Calcium 8.9 mg/dl (8.6-10.3); Chol HDL Ratio 3.6 (0-5); Creatinine Clr Calc Pharmacy 83.8 ml/min; Est GFR (African American) 93.2 ml/min; Est GFR (Non-African American) 80.4 ml/min; Potassium 4.2 mmol/L (3.5-5.1)
[2022-09-03 08:05] LABS: Estimated Average Glucose 131 mg/dl; Hemoglobin A1C 6.2 % (4.5-5.6)
--- NOTE | 2022-09-03 08:50 | Hospitalist Progress Note ---
Date of Service September 03, 2022 Assessment & Plan (1) Stroke-like symptoms: Plan: 77-year-old male with past med significant for type 2 diabetes, hyperlipidemia, AAA, hypertension, exertional angina, s/p aortocoronary bypass, chronic diastolic CHF, presents with strokelike symptoms which are resolved now status s/p stroke alert. As per ER stroke neurology recommended MRI scan bedrest, permissive hypertension and was loaded with Plavix. Strokelike symptoms Load with Plavix which will be continued Patient on aspirin and statin We will will do stroke protocol MRI brain shows small R occipital stroke (R RAW STOCK DRIER TENDER stroke) - discussed w/ neuro logy Echocardiogram obtained EF 55 to 60%. There is mild concentric LVH. Aortic valve sclerosis mild, without significant aortic valvular stenosis. There is mild mitral regurg. There is mild tricuspid regurg. Doppler findings do not suggest pulmonary hypertension. Injection of contrast documented no interatrial shunt. Neurology consulted - Patient presents with left visual field symptoms and L sided numbness corresponding to his R RAW STOCK DRIER TENDER stroke seen on MRI secondary to RAW STOCK DRIER TENDER atherosclerotic disease. Do not suspect embolism. Recommend continue DAPT for 21 days, then plavix 75mg daily thereafter. Continue lipitor 80mg daily with goal LDL of <70. Can work toward discharge with plan for followup in 6-8 weeks with neurology. Speech evaluation PT OT evaluation - recommend outpt PT for balance training Close monitoring telemetry. Hypertension Held amlodipine and losartan to allow for permissive hypertension on admission Continue metoprolol with holding parameters Monitor the blood pressure. Type 2 diabetes Current HbA1c levels 6.2% Cont. lantus + Insulin sliding scale Pharmacy consult. Resume home diabetic regimen on DC CAD stable S/p aortocoronary bypass On aspirin statin and beta-vaughn Hyperlipidemia On high-dose statin LDL 92 Cont Lipitor 80, goal LDL <70 Chronic diastolic CHF We will monitor for volume overload. DVT prophylaxis SCDs. Disposition -plan to DC home Admission and Anticipated Discharge Date Admission Date: September 02, 2022 Subjective Pt seen in follow up of stroke-like symptoms, now resolved Currently sitting up in chair, in no acute distress Denies any numbness, weakness He is eating lunch Patient's girlfriend present at the bedside Patient seen by neurology, speech therapy, physical therapy Discussed discharge, patient is interested in discharge home Review of Systems Review of Systems: All systems reviewed & are unremarkable except as noted in Subjective Physical Exam Physical Exam: General- WD/WN elderly M in NAD Head- atraumatic Eyes- PERRL, EOMI ENT- oropharynx clear Neck- supple, no JVD Lungs- clear to auscultation b/l Heart- regular rhythm; no murmur Abdomen- normal bowel sounds, soft, nontender, no masses Extremities- no pretibial edema, no calf tenderness; peripheral pulses intact Neuro- alert, oriented x 3; PERRL, EOMI; no facial palsy; no dysarthria; motor 5/5 bilaterally; sensations intact Skin- warm & dry Results & Data Results & Data Vital Signs (Past 12 Hours) Vital Signs Temp Pulse Pulse Pulse Resp BP Pulse Ox 09/03/22 07:39 36.5 C 85 18 156/86 H 96 09/03/22 03:31 36.4 C L 70 18 151/83 H 95 09/02/22 23:17 71 09/02/22 23:30 36.5 C 66 18 163/80 H 95 09/02/22 23:07 36.5 C 66 16 163/80 H 95 O2 Del Method 09/03/22 07:39 Room Air 09/03/22 03:31 Room Air 09/02/22 23:17 09/02/22 23:30 Room Air 09/02/22 23:07 Room Air Laboratory Results 09/03/22 09/03/22 09/03/22 Range/Units 05:48 05:45 05:45 WBC (4.8-10.8) K/ul RBC (4.70-6.10) M/uL Hgb (14.0-18.0) g/dl Hct (42.0-52.0) % MCV (80.0-100.0) fL MCH (25.0-34.0) pg MCHC (32.0-36.0) g/dL RDW Std Deviation (36.4-46.3) fL RDW Coeff of Jean Pierre (11.5-14.5) % Plt Count (130-400) K/uL MPV (9.4-12.4) fL Immature Gran % (Auto) % Neut % (Auto) % Lymph % (Auto) % Sumner % (Auto) % Eos % (Auto) % Baso % (Auto) % Neut # (Auto) (1.40-6.50) K/uL Lymph # (Auto) (1.2-3.4) K/uL Sumner # (Auto) (0.11-0.59) K/uL Eos # (Auto) (0-0.50) K/uL Baso # (Auto) (0-0.2) K/uL Immature Gran # (Auto) (0.01-0.20) K/uL PT (9.0-12.0) Seconds INR (0.9-1.1) APTT (21.0-31.0) Seconds PTT Ratio Sodium 137 (136-145) mmol/L Potassium 4.2 (3.5-5.1) mmol/L Chloride 108 H (98-107) mmol/L Carbon Dioxide 23 (21-32) mmol/L Anion Gap 6 (3-11) BUN 18 (6-23) mg/dl Creatinine 0.91 (0.6-1.4) mg/dl Est Cr Clr Drug Dosing 83.8 Est GFR ( Amer) 93.2 ml/min Est GFR (Non-Af Amer) 80.4 ml/min BUN/Creatinine Ratio 19.8 (10-20) Glucose 180 H (70-99(Fasting)) mg/dl POC Glucose 186 H (70-99) mg/dl Estimat Average Glucose 131 mg/dl Hemoglobin A1c 6.2 H (4.5-5.6) % Calcium 8.9 (8.6-10.3) mg/dl Magnesium (1.7-2.4) mg/dl Total Bilirubin (0.2-1.0) mg/dl AST (13-39) U/L ALT (7-52) U/L Alkaline Phosphatase (34-104) U/L Total Protein (6.0-8.3) gm/dl Albumin (3.4-5.0) gm/dl Globulin (2.5-4.0) gm/dl Albumin/Globulin Ratio (0.9-2) Triglycerides 51 (0-150) mg/dl Cholesterol 141 (0-200) mg/dl LDL Cholesterol, Calc 92 mg/dl VLDL Cholesterol, Calc 10 (0-30) mg/dl HDL Cholesterol 39 mg/dl Cholesterol/HDL Ratio 3.6 (0-5) SARS-CoV-2, RNA, NAAT (NEGATIVE) 09/03/22 09/02/2209/02/23 Range/Units 05:45 23:46 20:33 WBC 8.39 (4.8-10.8) K/ul RBC 4.54 L (4.70-6.10) M/uL Hgb 14.9 (14.0-18.0) g/dl Hct 40.8 L (42.0-52.0) % MCV 89.9 (80.0-100.0) fL MCH 32.8 (25.0-34.0) pg MCHC 36.5 H (32.0-36.0) g/dL RDW Std Deviation 40.2 (36.4-46.3) fL RDW Coeff of Jean Pierre 12.3 (11.5-14.5) % Plt Count 141 (130-400) K/uL MPV 10.1 (9.4-12.4) fL Immature Gran % (Auto) 0.5 % Neut % (Auto) 90.7 % Lymph % (Auto) 8.3 % Sumner % (Auto) 0.5 % Eos % (Auto) 0.0 % Baso % (Auto) 0.0 % Neut # (Auto) 7.61 H (1.40-6.50) K/uL Lymph # (Auto) 0.70 L (1.2-3.4) K/uL Sumner # (Auto) 0.04 L (0.11-0.59) K/uL Eos # (Auto) 0.00 (0-0.50) K/uL Baso # (Auto) 0.00 (0-0.2) K/uL Immature Gran # (Auto) 0.04 (0.01-0.20) K/uL PT (9.0-12.0) Seconds INR (0.9-1.1) APTT (21.0-31.0) Seconds PTT Ratio Sodium (136-145) mmol/L Potassium (3.5-5.1) mmol/L Chloride (98-107) mmol/L Carbon Dioxide (21-32) mmol/L Anion Gap (3-11) BUN (6-23) mg/dl Creatinine (0.6-1.4) mg/dl Est Cr Clr Drug Dosing Est GFR ( Amer) ml/min Est GFR (Non-Af Amer) ml/min BUN/Creatinine Ratio (10-20) Glucose (70-99(Fasting)) mg/dl POC Glucose 165 H (70-99) mg/dl Estimat Average Glucose mg/dl Hemoglobin A1c (4.5-5.6) % Calcium (8.6-10.3) mg/dl Magnesium (1.7-2.4) mg/dl Total Bilirubin (0.2-1.0) mg/dl AST (13-39) U/L ALT (7-52) U/L Alkaline Phosphatase (34-104) U/L Total Protein (6.0-8.3) gm/dl Albumin (3.4-5.0) gm/dl Globulin (2.5-4.0) gm/dl Albumin/Globulin Ratio (0.9-2) Triglycerides (0-150) mg/dl Cholesterol (0-200) mg/dl LDL Cholesterol, Calc mg/dl VLDL Cholesterol, Calc (0-30) mg/dl HDL Cholesterol mg/dl Cholesterol/HDL Ratio (0-5) SARS-CoV-2, RNA, NAAT NEGATIVE (NEGATIVE) 09/02/22 09/02/22 09/02/22 Range/Units 19:29 19:29 19:29 WBC 7.83 (4.8-10.8) K/ul RBC 4.67 L (4.70-6.10) M/uL Hgb 15.6 (14.0-18.0) g/dl Hct 43.0 (42.0-52.0) % MCV 92.1 (80.0-100.0) fL MCH 33.4 (25.0-34.0) pg MCHC 36.3 H (32.0-36.0) g/dL RDW Std Deviation 41.7 (36.4-46.3) fL RDW Coeff of Jean Pierre 12.5 (11.5-14.5) % Plt Count 153 (130-400) K/uL MPV 9.7 (9.4-12.4) fL Immature Gran % (Auto) % Neut % (Auto) % Lymph % (Auto) % Sumner % (Auto) % Eos % (Auto) % Baso % (Auto) % Neut # (Auto) (1.40-6.50) K/uL Lymph # (Auto) (1.2-3.4) K/uL Sumner # (Auto) (0.11-0.59) K/uL Eos # (Auto) (0-0.50) K/uL Baso # (Auto) (0-0.2) K/uL Immature Gran # (Auto) (0.01-0.20) K/uL PT 10.7 (9.0-12.0) Seconds INR 1.0 (0.9-1.1) APTT 24.6 (21.0-31.0) Seconds PTT Ratio 0.9 Sodium 139 (136-145) mmol/L Potassium 4.0 (3.5-5.1) mmol/L Chloride 108 H (98-107) mmol/L Carbon Dioxide 26 (21-32) mmol/L Anion Gap 5 (3-11) BUN 17 (6-23) mg/dl Creatinine 1.05 (0.6-1.4) mg/dl Est Cr Clr Drug Dosing Not Reportable Est GFR ( Amer) 78.4 ml/min Est GFR (Non-Af Amer) 67.7 ml/min BUN/Creatinine Ratio 16.2 (10-20) Glucose 119 H (70-99(Fasting)) mg/dl POC Glucose (70-99) mg/dl Estimat Average Glucose mg/dl Hemoglobin A1c (4.5-5.6) % Calcium 9.9 (8.6-10.3) mg/dl Magnesium 2.0 (1.7-2.4) mg/dl Total Bilirubin 0.6 (0.2-1.0) mg/dl AST 25 (13-39) U/L ALT 31 (7-52) U/L Alkaline Phosphatase 91 (34-104) U/L Total Protein 7.3 (6.0-8.3) gm/dl Albumin 4.4 (3.4-5.0) gm/dl Globulin 2.9 (2.5-4.0) gm/dl Albumin/Globulin Ratio 1.5 (0.9-2) Triglycerides (0-150) mg/dl Cholesterol (0-200) mg/dl LDL Cholesterol, Calc mg/dl VLDL Cholesterol, Calc (0-30) mg/dl HDL Cholesterol mg/dl Cholesterol/HDL Ratio (0-5) SARS-CoV-2, RNA, NAAT (NEGATIVE) Medications Administered Current Inpatient Medications Acetaminophen (Acetaminophen 325 Mg Tab) 650 mg PO Q4H PRN PRN Reason: Pain or Fever Stop: 10/02/22 23:04 Aspirin (Aspirin 81 Mg Ectab) 81 mg PO [facility] Stop: 10/02/22 23:04 Last Admin: 09/03/22 00:40 Dose: 81 mg Atorvastatin Calcium (Atorvastatin 40 Mg Tab) 80 mg PO [facility] Stop: 10/02/22 23:04 Last Admin: 09/03/22 00:39 Dose: 80 mg Clopidogrel Bisulfate (Clopidogrel Bisulfate 75 Mg Tab) 75 mg PO QAM [facility] Stop: 10/03/22 08:59 Last Admin: 09/03/22 07:43 Dose: 75 mg Cyanocobalamin (Cyanocobalamin (B-12) 2,500 Mcg Tablet) 2,500 mcg SL [facility] Stop: 10/02/22 23:04 Last Admin: 09/03/22 00:39 Dose: 2,500 mcg Dextrose (Dextrose 50% 50 Ml Syringe) 25 - 50 ml IV UD PRN; Protocol PRN Reason: Hypoglycemia Protocol Stop: 10/02/22 23:04 Fluticasone/Vilanterol (Fluticasone/Vilanterol 200/25mcg 14 Puffs/Inhaler) 1 puffs INH DAILY [facility] Stop: 10/03/22 08:59 Last Admin: 09/03/22 07:43 Dose: 1 puffs Glucagon (Glucagon For Inj 1 Mg Vial) 1 mg SQ UD PRN; Protocol PRN Reason: Hypoglycemia Protocol Stop: 10/02/22 23:04 Glucose (Glucose 10 Tab/Tube) 4 - 8 tab PO UD PRN; Protocol PRN Reason: Hypoglycemia Treatment Stop: 10/02/22 23:04 Glucose (Glucose 40% Gel 15 Gm Tube) 15 - 30 gm PO UD PRN; Protocol PRN Reason: Hypoglycemia Protocol Stop: 10/02/22 23:04 Sodium Chloride (Nss 1000ml) 1,000 mls @ 125 mls/hr IV .Q8H JIMMY Stop: 10/02/22 23:04 Last Admin: 09/03/22 07:41 Dose: 125 mls/hr Insulin Aspart (Insulin Aspart Per Unit Charge) 0 units SC Q6 JIMMY Stop: 10/03/22 00:00 Last Admin: 09/03/22 06:02 Dose: 2 units Isosorbide Mononitrate (Isosorbide Sumner Extended Rel 30 Mg Tabcr) 30 mg PO [facility] Stop: 10/03/22 20:59 Ketoconazole (Ketoconazole 2% Cr 15 Gm Tube) 1 appln EXT BID JIMMY Stop: 09/13/22 08:59 Last Admin: 09/03/22 07:44 Dose: 1 appln Losartan Potassium (Losartan Potassium 50 Mg Tab) 100 mg PO [facility] Stop: 10/03/22 20:59 Metoprolol Succinate (Metoprolol Succ 25mg Ext Rel Tab) 25 mg PO [facility] Stop: 10/03/22 20:59 Miscellaneous (Carbohydrates For Hypoglycemia ) 15 - 30 gm PO UD PRN PRN Reason: Hypoglycemia Protocol Stop: 10/02/22 23:04 Miscellaneous Information (Pharmacy Glycemic Mgmt Consult) 1 each N/A UD PRN PRN Reason: Consult Stop: 10/02/22 23:04 Miscellaneous Information (Pharmacist Discharge Med Rec Consult) 1 each N/A UD PRN PRN Reason: Consult Stop: 10/02/22 23:04 Multivitamins (Multivitamin Tab) 1 tab PO [facility] Stop: 10/03/22 20:59 Nitroglycerin (Nitroglycerin Sl 0.4 Mg/Tab Tab) 0.4 mg SL Q5M PRN PRN Reason: Chest Pain Stop: 10/02/22 23:04 Polyethylene Glycol (Polyethylene (Miralax) 17 Gm Pack) 17 gm PO DAILY PRN PRN Reason: Constipation Stop: 10/02/22 23:04 Vitamin D (Cholecalciferol 1,000 Units 25 Mcg Tab) 2,000 units PO [facility] Stop: 10/03/22 20:59
[2022-09-03] MEDS ORDERED: CLOPIDOGREL BISULFATE 75 MG TAB PO SCH (09:00)
[2022-09-03] MEDS ORDERED: KETOCONAZOLE 2% CR 15 GM TUBE EXT SCH (09:00)
[2022-09-03] MEDS ORDERED: FLUTICASONE/VILANTEROL 200/25MCG 14 PUFFS/INHALER INH SCH (09:00)
--- NOTE | 2022-09-03 10:01 | Neurology Consultation ---
Date of Consultation September 03, 2022 Assessment & Plan (1) Cerebrovascular accident: Patient presents with left visual field symptoms and L sided numbness corresponding to to his R WASH AND GREASER stroke seen on MRI secondary to WASH AND GREASER atherosclerotic disease. Do not suspect embolism. Recommend continue DAPT for 21 days, then plavix 75mg daily thereafter. Continue lipitor 80mg daily with goal LDL of <70. Can work toward discharge with plan for followup in 6-8 weeks with neurology. Telehealth Consultation Telehealth Information Telehealth Information: I performed this visit using a real-time telehealth connection between my location and the patients location ([facility]). After connecting through interactive tele-video, patient was identified by name and date of and/or wristband check.Patient (or authorized healthcare chemical sales representative) was informed that this was a telemedicine visit and it was being conducted confidentially over secure lines. My office door was closed and no one else was present in the room with me.Patient (or authorized healthcare chemical sales representative) provided consent to proceed with the visit, expressed an understanding of privacy and security of the telemedicine visit, and gave permission to have a hospital chemical sales representative in the room in order to assist with the visit and to conduct portions of the visit, as needed. I informed the patient (or authorized healthcare chemical sales representative) that I reviewed their record and presented the opportunity for them to ask any questions regarding the visit today. The patient agreed to participate. History of Present Illness Reason for Consultation: Stroke-like symptoms Requesting Physician: Dr. Zepeda Attending Physician: Geovany Zepeda MD History of Present Illness Micky Hooker is a 77 yo M presenting with two episodes of left sided numbness and left visual field changes. The patient reports that these episodes lasted minutes at a time and the second episode was more severe with total numbness o rakan the left side of his body and involving his face. He has a history of macular degeneration but reports seeing eason blobs in the left periphery of his vision, especially during the second attack. He tried to close one eye, then the other, and noticed the problem in both eyes. He has never had a stroke in the past and was reliably taking his aspirin and lipitor at home. Separate from these episodes he recalls 4x having dizziness in the past but the dizziness was not otherwise associated with any neurologic symptoms. Allergies Allergy/AdvReac Type Severity Reaction Status Date / Time Iodinated Contrast Media Allergy Unknown UNKNOWN Verified 09/02/22 19:50 PER [facility] MED LIST lisinopril AdvReac Intermediate Cough Verified 09/02/22 19:50 IVP DYE AdvReac Intermediate CHILLS/CAROLA Uncoded 09/02/22 19:50 RS Home Medications Medication Instructions Recorded Confirmed Type amlodipine 5 mg tablet 5 mg PO HS 02/29/20 09/02/22 History aspirin 81 mg tablet,delayed 81 mg PO HS 02/29/20 09/02/22 History release (Ayanna Low Dose Aspirin) atorvastatin 80 mg tablet 80 mg PO HS 02/29/20 09/02/22 History cholecalciferol (vitamin D3) 50 50 mcg PO HS 02/29/20 09/02/22 History mcg (2,000 unit) tablet (Vitamin D3) cyanocobalamin (vitamin B-12) 2,000 mcg sublingual HS 02/29/20 09/02/22 History 1,000 mcg sublingual tablet insulin glargine 100 unit/mL (3 50 unit subcut HS 02/29/20 09/02/22 History mL) subcutaneous pen (Basaglar KwikPen U-100 Insulin) losartan 100 mg tablet 100 mg PO HS 02/29/20 09/02/22 History metformin 500 mg tablet,extended 1,000 mg PO HS 02/29/20 09/02/22 History release 24 hr metoprolol succinate 25 mg 25 mg PO HS 02/29/20 09/02/22 History tablet,extended release 24 hr omega 3-mvs-dkr-fish oil 300 1 cap PO HS 02/29/20 09/02/22 History mg-1,000 mg capsule (Fish Oil) coenzyme Q10 100 mg capsule 100 mg PO HS 09/02/22 09/02/22 History (CoQ-10) fluticasone 250 mcg-salmeterol 50 1 inh inhalation BID 09/02/22 09/02/22 History mcg/dose blistr powdr for inhalation (Advair Diskus) isosorbide mononitrate 30 mg 30 mg PO HS 09/02/22 09/02/22 History tablet,extended release 24 hr ketoconazole 2 % topical cream 1 applic topical BID 09/02/22 09/02/22 History multivitamin 1 tab PO HS 09/02/22 09/02/22 History Patient History Medical History AAA (abdominal aortic aneurysm) "About 4 cm" --- follows Dr. Francisco [id number] CAD (coronary artery disease) S/p 4 vessel CABG 2001 Reports 100% occluded arteries x 2 per his most recent cath (2017 [facility]) medical management DDD (degenerative disc disease), lumbar DM type 2 (diabetes mellitus, type 2) IDDM Enlarged prostate History of cardiac murmur as a child History of depression HLD (hyperlipidemia) CRAIG (hard of hearing) HTN (hypertension) IBS (irritable bowel syndrome) Kidney stones Osteoarthritis TMJ (temporomandibular joint disorder) hx, several years ago, never locked. jaw pain and clicked at times. Surgical History History of ankle surgery Left History of appendectomy History of cardiac catheterization last cath ~02/2020 for [facility] -- no stents History of colonoscopy History of four vessel coronary artery bypass graft 2001 [facility] History of tonsillectomy Family History Other No family history of adverse response to anesthesia Social History (Updated 09/02/22 @ 21:37 by Brent Catalan MD) Smoking Status: Former smoker Smoking End Date: 1990; Second Hand Exposure: No; Do You Dip or Chew Tobacco: No; Hx Alcohol Use: Yes Alcohol type: beer Hx Substance Use: No Preferred Language: Yakut Communication Ability: Effective Business Services Officer Required: No Beliefs That Will Affect Care: None Current Living Situation: Alone Other Information That Helps Us Care for You: No Feels Safe at Home: Yes Safety Concerns: Feels Safe At This Time Assistive Devices: Glasses Review of Systems +Left sided numbness, resolved Physical Exam Neurological Examination: Mental Status: Awake and alert. Oriented to person, place, and time. Fluent. Comprehension intact. Affect appropriate. Cranial Nerves: II: Reads NIHSS cards, pupils 3/3 to 2/2, dalton grossly intact. III/IV/: Versions intact without nystagmus, no gaze preference. V: Facial sensation symmetric to light touch VII: Facial expression symmetric VIII: Hearing intact to voice IX/X: Palate elevates symmetrically XI: Shoulder shrug symmetric XII: Tongue midline Motor: Strength was symmetric and antigravity throughout. Pronator drift was absent. There were no abnormal movements. Sensory: Sensation to light touch was intact. Coordination: Finger to nose and heel to smith were intact. Reflexes: Unable to assess over telemedicine Results & Data Vital Signs (Past 12 Hours) Vital Signs Temp Pulse Pulse Pulse Resp BP Pulse Ox 09/03/22 07:39 36.5 C 85 18 156/86 H 96 09/03/22 03:31 36.4 C L 70 18 151/83 H 95 09/02/22 23:17 71 09/02/22 23:30 36.5 C 66 18 163/80 H 95 09/02/22 23:07 36.5 C 66 16 163/80 H 95 O2 Del Method 09/03/22 07:39 Room Air 09/03/22 03:31 Room Air 09/02/22 23:17 09/02/22 23:30 Room Air 09/02/22 23:07 Room Air Laboratory Results Abnormal lab results 09/02/22 09/02/22 09/02/22 Range/Units 19:29 19:29 23:46 RBC 4.67 L (4.70-6.10) M/uL Hct (42.0-52.0) % MCHC 36.3 H (32.0-36.0) g/dL Neut # (Auto) (1.40-6.50) K/uL Lymph # (Auto) (1.2-3.4) K/uL Ralls # (Auto) (0.11-0.59) K/uL Chloride 108 H (98-107) mmol/L Glucose 119 H (70-99(Fasting)) mg/dl POC Glucose 165 H (70-99) mg/dl Hemoglobin A1c (4.5-5.6) % 09/03/22 09/03/22 09/03/22 Range/Units 05:45 05:45 05:45 RBC 4.54 L (4.70-6.10) M/uL Hct 40.8 L (42.0-52.0) % MCHC 36.5 H (32.0-36.0) g/dL Neut # (Auto) 7.61 H (1.40-6.50) K/uL Lymph # (Auto) 0.70 L (1.2-3.4) K/uL Ralls # (Auto) 0.04 L (0.11-0.59) K/uL Chloride 108 H (98-107) mmol/L Glucose 180 H (70-99(Fasting)) mg/dl POC Glucose (70-99) mg/dl Hemoglobin A1c 6.2 H (4.5-5.6) % 09/03/22 Range/Units 05:48 RBC (4.70-6.10) M/uL Hct (42.0-52.0) % MCHC (32.0-36.0) g/dL Neut # (Auto) (1.40-6.50) K/uL Lymph # (Auto) (1.2-3.4) K/uL Ralls # (Auto) (0.11-0.59) K/uL Chloride (98-107) mmol/L Glucose (70-99(Fasting)) mg/dl POC Glucose 186 H (70-99) mg/dl Hemoglobin A1c (4.5-5.6) % Diagnostic Findings MRI brain - 09/03 - R occipital polar stroke CTA - R WASH AND GREASER stenosis
--- NOTE | 2022-09-03 10:33 | Pharmacy Report ---
- Date of Service September 03, 2022 - Pharmacy CVA/TIA Medication Review Medications to Prevent Stroke handout has been added to the patients discharge packet. Antiplatelet(s) * Aspirin 81 mg PO daily + clopidogrel 75 mg PO daily x 21 days, then clopidogrel 75 mg PO daily ongoing Cholesterol * High intensity statin: atorvastatin 80 mg daily DVT Prophylaxis * SCD thigh Therapeutic Anticoagulation * No history of Afib/Aflutter noted Type 2 Diabetes * Patient has T2DM, but per Dr. Zepeda, a diabetes medication with proven CVD benefit will be deferred to their outpatient provider due to familiarity with risks/benefits of such therapies. "Medications to prevent stroke" handout has already been added to the patient's discharge packet, which instructs the patient to follow up with their outpatient provider to evaluate which diabetes medication with proven CVD benefit is best for them
[2022-09-03] MEDS ORDERED: LANTUS PER UNIT CHARGE SQ ONE ×2 (11:30)
[2022-09-03] MEDS ORDERED: INSULIN ASPART PER UNIT CHARGE SC SCH (11:30)
[2022-09-03] MEDS ORDERED: STROKE PATIENT DISCHARGE STA (12:17)
--- NOTE | 2022-09-03 12:22 | Discharge Summary ---
Date of Service September 03, 2022 Admission HPI Per Admitting Provider This is 77-year-old male with past medical history significant for type 2 diabetes, hyperlipidemia, AAA, hypertension, exertional angina, chronic diastolic CHF, B12 deficiency, vitamin D deficiency, s/p aortocoronary bypass, asbestos exposure, history of tobacco abuse, history of positive PPD presents with paresthesias and numbness on the left side of the body started at 5:30 PM today and lasted for about half hour. It came back again but again resolved. Since last 1 week he is also having some left eye vision problems on and off but the vision is okay now. During the episode he felt some weakness in the left side but thinks he can ambulate okay now. Couple of days ago he had headache but got better now. When he bends down he has some lightheadedness. No earaches, no runny nose, no sore throat, no fevers, no difficulty swallowing. No fever or chills. No chest pain or shortness of breath. No nausea or vomitings, no abdominal pain, normal bowel and bladder movements. No swelling in the legs. Currently resting comfortably and hemodynamically stable Admission Exam Per Admitting Provider General- adult Head- atraumatic Eyes- PERRL, EOMI, ENT- oropharynx clear Neck- supple, no JVD, ; carotids +2/2, no bruits appreciated Lungs- clear to auscultation and percussion Heart- regular rhythm; no murmur, no gallop, no rub appreciated Abdomen- normal bowel sounds, soft, nontender, no masses or hepatosplenomegaly Extremities- no pretibial edema, no calf tenderness; peripheral pulses intact Neuro- alert, oriented x 3; PERRL, EOMI; no facial palsy; no dysarthria; motor 5/5 bilaterally; coordniation of movements ormal, no pronator drift, sensations intact, can raise and hold lower extremities Skin- warm & dry Principal Diagnosis R [employer]ER stroke Discharge Exam General- WD/WN elderly M in NAD Head- atraumatic Eyes- PERRL, EOMI ENT- oropharynx clear Neck- supple, no JVD Lungs- clear to auscultation b/l Heart- regular rhythm; no murmur Abdomen- normal bowel sounds, soft, nontender, no masses Extremities- no pretibial edema, no calf tenderness; peripheral pulses intact Neuro- alert, oriented x 3; PERRL, EOMI; no facial palsy; no dysarthria; motor 5/5 bilaterally; sensations intact Skin- warm & dry Discharge Data Allergies Allergy/AdvReac Type Severity Reaction Status Date / Time Iodinated Contrast Media Allergy Unknown UNKNOWN Verified 09/02/22 19:50 PER [facility] MED LIST lisinopril AdvReac Intermediate Cough Verified 09/02/22 19:50 IVP DYE AdvReac Intermediate CHILLS/CAROLA Uncoded 09/02/22 19:50 RS Consultations 09/02/22 20:40 ED Decision to Admit Stat 09/03/22 08:00 Consult Neurology Routine Ordered Studies 09/02/22 19:19 CT head/brain wo con Stat 09/02/22 19:22 CT angio head w con Stat 09/02/22 19:31 CT angio neck with con Stat 09/02/22 23:05 MR brain wo/w con Urgent Hospital Course (1) Stroke-like symptoms: 77-year-old male with past med significant for type 2 diabetes, hyperlipidemia, AAA, hypertension, exertional angina, s/p aortocoronary bypass, chronic diastolic CHF, presents with strokelike symptoms which are resolved now status s/p stroke alert. As per ER stroke neurology recommended MRI scan bedrest, permissive hypertension and was loaded with Plavix. Strokelike symptoms Load with Plavix which will be continued Patient on aspirin and statin We will will do stroke protocol MRI brain shows small R occipital stroke (R [employer] stroke) - discussed w/ neurology Echocardiogram obtained EF 55 to 60%. There is mild concentric LVH. Aortic valve sclerosis mild, without significant aortic valvular stenosis. There is mild mitral regurg. There is mild tricuspid regurg. Doppler findings do not suggest pulmonary hypertension. Injection of contrast documented no interatrial shunt. 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 Do not suspect embolism. Recommend continue DAPT for 21 days, then plavix 75mg daily thereafter. Continue lipitor 80mg daily with goal LDL of <70. Can work toward discharge with plan for followup in 6-8 weeks with neurology. Speech evaluation PT OT evaluation - recommend outpt PT for balance training Close monitoring telemetry. Hypertension Held amlodipine and losartan to allow for permissive hypertension on admission Continue metoprolol with holding parameters Monitor the blood pressure. Type 2 diabetes Current HbA1c levels 6.2% Cont. lantus + Insulin sliding scale Pharmacy consult. Resume home diabetic regimen on DC CAD stable S/p aortocoronary bypass On aspirin statin and beta-vaughn Hyperlipidemia On high-dose statin LDL 92 Cont Lipitor 80, goal LDL <70 Chronic diastolic CHF monitor for volume overload. Total Time Total Time Spent Total Time Spent (In Minutes): 40 Discharge Plan Discharge Items Patient Disposition: Home - Self-Care Reason For Visit: CVA SYMPTOMS Discharge Diagnosis: R M[employer] stroke Activity: Per Instructions section Non-emergency contact: Primary Care Provider and Neurologist Call non-emergency contact if: you have any medication questions and your symptoms worsen Follow-up/Referrals: Madhuri Watts PA-C [Physician [employer]] - (Date & Time 10/11/2022 11:20 AM Provider Madhuri Watts PA-C Department Neurology [facility] ) Alok Amaya DO [Primary Care Provider] - (Date & Time 09/10/2022 11:00 AM Provider Bhavin Martinez III, MD Department Family Practice [facility] ) Diet: Carb Consistent or DM2 and Heart Healthy Addtl Attending Provider Instructions: Follow-up with your primary care doctor, and neurology. The appointment with primary care physician was scheduled for you for September 10. The appointment with neurology was scheduled for you for October 11. Continue taking aspirin 81 mg daily and plavix 75 mg daily for 21 days, then take plavix 75mg daily alone, thereafter. Continue lipitor 80mg daily. Follow-up in 6-8 weeks with neurology. Pending Studies at Discharge: No Stand-Alone Forms: My [employer], Smoking Cessation, Medications to Prevent Stroke Medications and DC Order Prescriptions: New clopidogrel 75 mg Tablet 75 mg PO QAM Qty: 30 0RF Continued atorvastatin 80 mg tablet 80 mg PO HS amlodipine 5 mg tablet 5 mg PO HS metoprolol succinate 25 mg tablet extended release 24 hr 25 mg PO HS metformin 500 mg tablet extended release 24 hr 1,000 mg PO HS aspirin [Ayanna Low Dose Aspirin] 81 mg Tablet,Delayed Release (Dr/Ec) 81 mg PO HS cyanocobalamin (vitamin B-12) 1,000 mcg Tablet, Sublingual 2,000 mcg SUBLINGUAL HS losartan 100 mg tablet 100 mg PO HS insulin glargine [Basaglar KwikPen U-100 Insulin] 100 unit/mL (3 mL) Insulin Pen 50 unit SUBCUT HS cholecalciferol (vitamin D3) [Vitamin D3] 50 mcg (2,000 unit) Tablet 50 mcg PO HS omega 7-aim-lju-fish oil [Fish Oil] 300-1,000 mg Capsule 1 cap PO HS multivitamin Tablet 1 tab PO HS fluticasone propion-salmeterol [Advair Diskus] 250-50 mcg/dose blister with device 1 inh INHALATION BID isosorbide mononitrate 30 mg tablet extended release 24 hr 30 mg PO HS ketoconazole 2 % Cream 1 applic TOPICAL BID Rx Instructions: APPLY TO GROIN AREA coenzyme Q10 [CoQ-10] 100 mg Capsule 100 mg PO HS Discharge Orders: Discharge Order (Routine); Ordered 09/03/22 Ordered By: Geovany Zepeda Admission Data Admit Date/Time: 09/02/22 21:25 Attending Provider: Geovany Zepeda Admit Provider: Brent Catalan Primary Care Provider: Alok Amaya Other Providers: Brent Catalan
--- NOTE | 2022-09-03 18:10 | Electrocardiogram Report ---
Test Reason : Blood Pressure : / mmHG Vent. Rate : 089 BPM Atrial Rate : 089 BPM P-R Int : 188 ms QRS Dur : 100 ms QT Int : 366 ms P-R-T Axes : 039 045 035 degrees QTc Int : 445 ms Sinus rhythm with occasional Premature ventricular complexes Abnormal ECG When compared with ECG of 10-MAY-2001 19:34, Premature ventricular complexes are now Present Borderline criteria for Inferior infarct are no longer Present Confirmed by Papo Oconnell ([id number]) on 09/03/2022 6:10:04 PM Referred By: REFERRED SELF Confirmed By:Khris Oconnell
[2022-09-03] MEDS ORDERED: MULTIVITAMIN TAB PO SCH (21:00)
[2022-09-03] MEDS ORDERED: METOPROLOL SUCC 25MG EXT REL TAB PO SCH (21:00)
[2022-09-03] MEDS ORDERED: ISOSORBIDE MONO EXTENDED REL 30 MG TABCR PO SCH (21:00)
[2022-09-03] MEDS ORDERED: CHOLECALCIFEROL 1,000 UNITS 25 MCG TAB PO SCH (21:00)
[2022-09-03] MEDS ORDERED: NON-FORMULARY MEDICATION (Coenzyme Q10 [Coq-10] 100 mg Capsule) PO SCH (21:00)
[2022-09-03] MEDS ORDERED: LOSARTAN POTASSIUM 50 MG TAB PO SCH (21:00)
== END 2022-09-03 14:15 | disposition home or self-care (01) | DRG 65 ==
LOC: ED 19:12 → 2S 21:25

== ENCOUNTER 2022-09-05 21:25 | Observation (INO) ==
[2022-09-05 22:27] LABS: Albumin Globulin Ratio 1.7 (0.9-2); Albumin Level 4.7 gm/dl (3.4-5.0); BUN Creatinine Ratio 18.5 (10-20); Calcium 9.9 mg/dl (8.6-10.3); Creatinine Clr Calc Pharmacy 83.8 ml/min; Est GFR (Non-African American) 79.4 ml/min; Globulin 2.7 gm/dl (2.5-4.0); Magnesium 2.1 mg/dl (1.7-2.4); Potassium 3.6 mmol/L (3.5-5.1); Total Protein 7.4 gm/dl (6.0-8.3)
[2022-09-05 22:31] LABS: Hematocrit (blood only) 41.7 % (42.0-52.0); Hemoglobin 15.1 g/dl (14.0-18.0); Mean Corpuscular Hemoglobin 32.8 pg (25.0-34.0); Mean Corpuscular Hgb Conc 36.2 g/dL (32.0-36.0); Mean Corpuscular Volume 90.7 fL (80.0-100.0); Mean Platelet Volume 9.7 fL (9.4-12.4); Platelet Count 156 K/uL (130-400); RDW Coefficient of Variation 12.3 % (11.5-14.5); RDW Standard Deviation 40.7 fL (36.4-46.3); White Blood Count 9.28 K/ul (4.8-10.8)
[2022-09-05 22:37] LABS: Partial Thromboplastin Ratio 0.8; Partial Thromboplastin Time 23.4 Seconds (21.0-31.0); Prothrombin Time 10.9 Seconds (9.0-12.0)
--- NOTE | 2022-09-05 23:12 | CT Scan Report ---
Exam(s): CT HEAD Without Contrast EXAM: CT Head Without Intravenous Contrast CLINICAL HISTORY: Reason for exam: facial numbness, recent cva. TECHNIQUE: Axial computed tomography images of the head/brain without intravenous contrast. CTDI is 38.17 mGy and DLP is 625.8 mGy-cm. Automated exposure control was utilized for the study. A dose lowering technique was utilized adhering to the principles of ALARA. COMPARISON: Dated 09/02/22. MRI dated 09/02/22 is also reviewed. FINDINGS: Brain: The cerebral and cerebellar sulci are mildly prominent consistent with mild brain atrophy. There are a few areas of decreased attenuation in the deep cerebral white matter consistent with mild small vessel ischemic/degenerative changes. No hemorrhage. Ventricles: Unremarkable. No ventriculomegaly. Bones/joints: Unremarkable. No acute fracture. Soft tissues: Unremarkable. Vasculature: Atherosclerotic disease. Sinuses: Unremarkable as visualized. No acute sinusitis. Mastoid air cells: Unremarkable as visualized. No mastoid effusion. IMPRESSION: No acute findings in the head/brain. Electronically signed by: Amaury Bustos MD 09/05/22 23:11 PM
--- NOTE | 2022-09-05 23:53 | Emergency Department Note ---
Impression & Plan Left facial numbness, HTN (hypertension), History of stroke ED Provider Note Provider: Filipe Dunaway MD DATE OF SERVICE: 09/05/2022 CHIEF COMPLAINT: Left facial numbness HISTORY OF PRESENT ILLNESS: Patient is a 77-year-old gentleman history of hypertension and recent admission for what described as a CVA this weekend presenting with the onset around 2 PM this afternoon of some left cheek numbness. Denies other aphasia, speech issues, dizziness, or numbness or weakness. Patient states that got home 2 days ago and maybe saw few flashes of light here there but otherwise has been well until this afternoon. No trauma reported. No syncope. States been able to walk fine. When he came in with stroke symptoms over the weekend had significant left-sided numbness and tingling as well as unsteadiness and he is not having that at the moment. Reports left-sided face feels dull or somewhat numb in nature. Denies any difficulty with taste or swallowing. Has been taking home medications. PAST MEDICAL HISTORY: As noted above MEDICATIONS: Reviewed home medications includes aspirin and Plavix SOCIAL HISTORY: Lives by himself PHYSICAL EXAM: GENERAL: alert and oriented in no acute distress on stretcher Head: normocephalic and atraumatic EYES: No injection, discharge or icterus. PERRL, EOMI. NECK: Trachea midline. Supple. ENT: Mucous membranes pink and moist. Pharynx without erythema or exudate. LUNGS: Airway patent. No retractions. Breath sounds clear with good air entry bilaterally. HEART: Regular rate and rhythm. No chest wall tenderness ABDOMEN: Soft and non-tender, without guarding or rebound. SKIN: Acyanotic, warm, dry, without rashes EXTREMITIES: Without swelling, tenderness or deformity NEUROLOGICAL: No focal deficits. No aphasia. No facial droop or slurred speech. Tongue midline. Normal strength and tone in the extremities. Sensation to gross touch normal. Ambulatory. EK bpm normal sinus rhythm with sinus arrhythmia. No PVC. No acute ST se gment elevation or depression with a QTc of 441. CONTINUOUS CARDIAC MONITORING: was ordered and showed a heart rate of 60s-70s bpm in normal sinus rhythm Patient's laboratory studies and imaging reviewed. Differential includes Infection, dehydration, metabolic abnormality, hypo/hyperglycemia, electrolyte disturbance, anemia, hypoxia, cardiac sources, intracerebral event, toxicologic, neurologic, as well as other pathologies. IMPRESSION/MEDICAL DECISION MAKING: Patient with recent CVA. Outside the time window for thrombolytics with some left facial numbness. Seems fairly isolated there without other systemic symptoms. No hemiplegia. No dizziness or ambulatory dysfunction noted. No t rauma reported. Do not see evidence of facial cellulitis or infection at this time. Do not see significant paralysis the face and does not clearly seem to be Leung's palsy at this time. Obvious concern given his recent stroke. Did have CT angiograms during recent evaluation. Gross visual dalton appear intact at this time. CT of the head without significant acute findings per radiology such as bleed. May be a bit of recrudescence. Does not sound like seizure. Could be more of a peripheral process versus again evolution of his recent stroke. Here are reassuring. Do not feel given the lack of severe symptoms we need angiograms at this point. Discussed with him staying for further evaluation given his new neurological symptoms and recent stroke. As noted to be hypertensive here as well. DIAGNOSIS: Left facial numbness, hypertension, history of CVA DISPOSITION: Hospitalist will evaluate Patient was agreeable with this plan. Past Med/Surg History Medical History AAA (abdominal aortic aneurysm) "About 4 cm" --- follows Dr. Francisco [id number] CAD (coronary artery disease) S/p 4 vessel CABG 2001 Reports 100% occluded arteries x 2 per his most recent cath (2017 [facility]) medical management DDD (degenerative disc disease), lumbar DM type 2 (diabetes mellitus, type 2) IDDM Enlarged prostate History of cardiac murmur as a child History of depression HLD (hyperlipidemia) [place] (hard of hearing) HTN (hypertension) IBS (irritable bowel syndrome) Kidney stones Osteoarthritis TMJ (temporomandibular joint disorder) hx, several years ago, never locked. jaw pain and clicked at times. Surgical History History of ankle surgery Left History of appendectomy History of cardiac catheterization last cath ~02/2020 for [facility] -- no stents History of colonoscopy History of four vessel coronary artery bypass graft 2001 [facility] History of tonsillectomy Family History Other No family history of adverse response to anesthesia Social History (Updated 09/02/22 @ 21:37 by Brent Catalan MD) Smoking Status: Former smoker Second Hand Exposure: No; Do You Dip or Chew Tobacco: No; Hx Alcohol Use: Yes Alcohol type: beer Hx Substance Use: No Preferred Language: Tuvaluan Communication Ability: Effective 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 Beliefs That Will Affect Care: None Current Living Situation: Alone Feels Safe at Home: Yes Assistive Devices: Glasses Allergies Allergies Allergy/AdvReac Type Severity Reaction Status Date / Time Iodinated Contrast Media Allergy Unknown UNKNOWN Verified 09/05/22 22:19 PER [facility] MED LIST lisinopril AdvReac Intermediate Cough Verified 09/05/22 22:19 IVP DYE AdvReac Intermediate CHILLS/CAROLA Uncoded 09/05/22 22:19 RS Home Meds Home Medications Medication Instructions Recorded Confirmed amlodipine 5 mg tablet 5 mg PO HS 02/29/20 09/05/22 aspirin 81 mg tablet,delayed 81 mg PO HS 02/29/20 09/05/22 release (Ayanna Low Dose Aspirin) atorvastatin 80 mg tablet 80 mg PO HS 02/29/20 09/05/22 cholecalciferol (vitamin D3) 50 50 mcg PO HS 02/29/20 09/05/22 mcg (2,000 unit) tablet (Vitamin D3) cyanocobalamin (vitamin B-12) 2,000 mcg sublingual HS 02/29/20 09/05/22 1,000 mcg sublingual tablet insulin glargine 100 unit/mL (3 50 unit subcut 02/29/20 09/05/22 mL) subcutaneous pen (Basaglar KwikPen U-100 Insulin) losartan 100 mg tablet 100 mg PO HS 02/29/20 09/05/22 metformin 500 mg tablet,extended 1,000 mg PO HS 02/29/20 09/05/22 release 24 hr metoprolol succinate 25 mg 25 mg PO HS 02/29/20 09/05/22 tablet,extended release 24 hr omega 7-tbm-fzc-fish oil 300 1 cap PO HS 02/29/20 09/05/22 mg-1,000 mg capsule (Fish Oil) coenzyme Q10 100 mg capsule 100 mg PO HS 09/02/22 09/05/22 (CoQ-10) fluticasone 250 mcg-salmeterol 50 1 inh inhalation BID 09/02/22 09/05/22 mcg/dose blistr powdr for inhalation (Advair Diskus) isosorbide mononitrate 30 mg 30 mg PO HS 09/02/22 09/05/22 tablet,extended release 24 hr ketoconazole 2 % topical cream 1 applic topical BID 09/02/22 09/05/22 multivitamin 1 tab PO HS 09/02/22 09/05/22 Previous Rx's Medication Instructions Recorded clopidogrel 75 mg tablet 75 mg PO QAM #30 tabs 09/03/22 Results & Data (ED) Vital Signs Vital Signs - 24 hr 09/05/22 21:28 09/05/22 21:58 09/05/22 22:00 Temperature 36.6 C Temperature Source Temporal Artery Scan Pulse Rate 90 84 76 Pulse Rate from SpO2 Sensor 79 Respiratory Rate 18 19 Respiratory Effort / Characteristics Non-Labored Spontaneous Respiratory Depth Normal Respiratory Pattern Regular Blood Pressure 192/87 H 162/86 H Blood Pressure Mean 122 111 Blood Pressure Position Sitting Pulse Oximetry 93 94 Oxygen Delivery Method Room Air Room Air Sepsis Recent Fever Within 48 Hours No Sepsis New/Unexplained Change in Mental Status N/A Sepsis Action Taken by Nursing No Action Required 09/05/22 23:00 09/06/22 00:00 09/06/22 01:00 Temperature Temperature Source Pulse Rate 75 71 71 Pulse Rate from SpO2 Sensor 78 70 Respiratory Rate 17 16 14 Respiratory Effort / Characteristics Respiratory Depth Respiratory Pattern Blood Pressure 175/100 H 151/90 H 157/100 H Blood Pressure Mean 125 110 119 Blood Pressure Position Pulse Oximetry 94 95 94 Oxygen Delivery Method Room Air Room Air Sepsis Recent Fever Within 48 Hours Sepsis New/Unexplained Change in Mental Status Sepsis Action Taken by Nursing 09/06/22 01:56 09/06/22 02:00 09/06/22 02:30 Temperature Temperature Source Pulse Rate 72 61 63 Pulse Rate from SpO2 Sensor Respiratory Rate 16 16 Respiratory Effort / Characteristics Respiratory Depth Respiratory Pattern Blood Pressure 145/85 H Blood Pressure Mean 105 Blood Pressure Position Pulse Oximetry Oxygen Delivery Method Sepsis Recent Fever Within 48 Hours Sepsis New/Unexplained Change in Mental Status Sepsis Action Taken by Nursing Laboratory Data 09/05/22 21:40 09/05/22 21:40 Lab Results 09/05/22 09/05/22 09/05/22 Range/Units 21:40 21:40 21:40 WBC 9.28 (4.8-10.8) K/ul RBC 4.60 L (4.70-6.10) M/uL Hgb 15.1 (14.0-18.0) g/dl Hct 41.7 L (42.0-52.0) % MCV 90.7 (80.0-100.0) fL MCH 32.8 (25.0-34.0) pg MCHC 36.2 H (32.0-36.0) g/dL RDW Std Deviation 40.7 (36.4-46.3) fL RDW Coeff of Jean Pierre 12.3 (11.5-14.5) % Plt Count 156 (130-400) K/uL MPV 9.7 (9.4-12.4) fL PT 10.9 (9.0-12.0) Seconds INR 1.0 (0.9-1.1) APTT 23.4 (21.0-31.0) Seconds PTT Ratio 0.8 Sodium 140 (136-145) mmol/L Potassium 3.6 (3.5-5.1) mmol/L Chloride 106 (98-107) mmol/L Carbon Dioxide 25 (21-32) mmol/L Anion Gap 9 (3-11) BUN 17 (6-23) mg/dl Creatinine 0.92 (0.6-1.4) mg/dl Est Cr Clr Drug Dosing 83.8 ml/min Est GFR ( Amer) 92.0 ml/min Est GFR (Non-Af Amer) 79.4 ml/min BUN/Creatinine Ratio 18.5 (10-20) Glucose 121 H (70-99(Fasting)) mg/dl Calcium 9.9 (8.6-10.3) mg/dl Magnesium 2.1 (1.7-2.4) mg/dl Total Bilirubin 1.0 (0.2-1.0) mg/dl AST 29 (13-39) U/L ALT 35 (7-52) U/L Alkaline Phosphatase 97 (34-104) U/L Total Protein 7.4 (6.0-8.3) gm/dl Albumin 4.7 (3.4-5.0) gm/dl Globulin 2.7 (2.5-4.0) gm/dl Albumin/Globulin Ratio 1.7 (0.9-2) TSH (0.300-4.500) uIu/ml SARS-CoV-2, RNA, NAAT (NEGATIVE) 09/06/22 09/06/22 Range/Units 00:34 01:41 WBC (4.8-10.8) K/ul RBC (4.70-6.10) M/uL Hgb (14.0-18.0) g/dl Hct (42.0-52.0) % MCV (80.0-100.0) fL MCH (25.0-34.0) pg MCHC (32.0-36.0) g/dL RDW Std Deviation (36.4-46.3) fL RDW Coeff of Jean Pierre (11.5-14.5) % Plt Count (130-400) K/uL MPV (9.4-12.4) fL PT (9.0-12.0) Seconds INR (0.9-1.1) APTT (21.0-31.0) Seconds PTT Ratio Sodium (136-145) mmol/L Potassium (3.5-5.1) mmol/L Chloride (98-107) mmol/L Carbon Dioxide (21-32) mmol/L Anion Gap (3-11) BUN (6-23) mg/dl Creatinine (0.6-1.4) mg/dl Est Cr Clr Drug Dosing ml/min Est GFR ( Amer) ml/min Est GFR (Non-Af Amer) ml/min BUN/Creatinine Ratio (10-20) Glucose (70-99(Fasting)) mg/dl Calcium (8.6-10.3) mg/dl Magnesium (1.7-2.4) mg/dl Total Bilirubin (0.2-1.0) mg/dl AST (13-39) U/L ALT (7-52) U/L Alkaline Phosphatase (34-104) U/L Total Protein (6.0-8.3) gm/dl Albumin (3.4-5.0) gm/dl Globulin (2.5-4.0) gm/dl Albumin/Globulin Ratio (0.9-2) TSH 2.889 (0.300-4.500) uIu/ml SARS-CoV-2, RNA, NAAT NEGATIVE (NEGATIVE) Administered Medications Lactated Ringer's (Lr) 1,000 mls @ 50 mls/hr IV .Q20H ONE Stop: 09/06/22 20:40 Last Admin: 09/06/22 02:40 Dose: 50 mls/hr Documented By: SHARDA Imaging Data Radiologist's Impression: Head CT 09/05/22 22:49 Exam(s): CT HEAD Without Contrast EXAM: CT Head Without Intravenous Contrast CLINICAL HISTORY: Reason for exam: facial numbness, recent cva. TECHNIQUE: Axial computed tomography images of the head/brain without intravenous contrast. CTDI is 38.17 mGy and DLP is 625.8 mGy-cm. Automated exposure control was utilized for the study. A dose lowering technique was utilized adhering to the principles of ALARA. COMPARISON: Dated 09/02/22. MRI dated 09/02/22 is also reviewed. FINDINGS: Brain: The cerebral and cerebellar sulci are mildly prominent consistent with mild brain atrophy. There are a few areas of decreased attenuation in the deep cerebral white matter consistent with mild small vessel ischemic/degenerative changes. No hemorrhage. Ventricles: Unremarkable. No ventriculomegaly. Bones/joints: Unremarkable. No acute fracture. Soft tissues: Unremarkable. Vasculature: Atherosclerotic disease. Sinuses: Unremarkable as visualized. No acute sinusitis. Mastoid air cells: Unremarkable as visualized. No mastoid effusion. IMPRESSION: No acute findings in the head/brain. Electronically signed by: Amaury Bustos MD 09/05/22 23:11 PM Discharge Plan Visit Data Chief Complaint: Neuro Symptoms/Deficit Stated Complaint: NUMBNESS ON LEFT SIDE ED Provider: Filipe Dunaway Discharge Problem: Left facial numbness, HTN (hypertension), History of stroke Patient Disposition: Being Evaluated by Hospitalist Forms Stand Alone Forms: My [facility] Prescriptions Prescriptions: No Action atorvastatin 80 mg tablet 80 mg PO HS amlodipine 5 mg tablet 5 mg PO HS metoprolol succinate 25 mg tablet extended release 24 hr 25 mg PO HS metformin 500 mg tablet extended release 24 hr 1,000 mg PO HS aspirin [Ayanna Low Dose Aspirin] 81 mg Tablet,Delayed Release (Dr/Ec) 81 mg PO HS cyanocobalamin (vitamin B-12) 1,000 mcg Tablet, Sublingual 2,000 mcg SUBLINGUAL HS losartan 100 mg tablet 100 mg PO HS insulin glargine [Basaglar KwikPen U-100 Insulin] 100 unit/mL (3 mL) Insulin Pen 50 unit SUBCUT HS cholecalciferol (vitamin D3) [Vitamin D3] 50 mcg (2,000 unit) Tablet 50 mcg PO HS omega 1-wyq-wal-fish oil [Fish Oil] 300-1,000 mg Capsule 1 cap PO HS multivitamin Tablet 1 tab PO HS fluticasone propion-salmeterol [Advair Diskus] 250-50 mcg/dose blister with device 1 inh INHALATION BID isosorbide mononitrate 30 mg tablet extended release 24 hr 30 mg PO HS ketoconazole 2 % Cream 1 applic TOPICAL BID Rx Instructions: APPLY TO GROIN AREA coenzyme Q10 [CoQ-10] 100 mg Capsule 100 mg PO HS clopidogrel 75 mg Tablet 75 mg PO QAM Qty: 30 0RF Referrals Referrals: Alok Amaya DO [Primary Care Provider] - Bhavin Martinez MD [Physician] - 09/10/22 11:00 am (You have an appointment with Dr. Martinez on Saturday09/10/22 at 11:00am. If you have any questions or are unable to keep the appointment, please contact the office directly.)
[2022-09-06] MEDS ORDERED: LACTATED RINGER'S 1,000 ML IV ONE (00:41)
--- NOTE | 2022-09-06 03:04 | History & Physical Report ---
Date of Service September 06, 2022 Assessment & Plan (1) TIA (transient ischemic attack): Plan: TIA hx CVA HTN, elevated secondary to above hx chronic diastolic heart failure, patient euvolemic CAD status post CABG valvular heart disease (mild MR/TR) AAA, last outpatient measurement of 4.1 cm December 2021, [place] [facility] [place] hyperlipidemia, on statin Rx DM 2 on oral medications, well-controlled as of recent hemoglobin A1c of 6.2 this month LE DVT status post Coumadin past tobacco abuse OBS Medical telemetry Neurochecks MRI/MRA brain Re: TIA Continue antiplatelet Rx for secondary stroke prevention Permissive hypertension until new stroke ruled out Neurology consult Re: TIA Basal bolus insulin, ISS BG goal 1 10-1 40, carb count coverage DVT prophylaxis with Lovenox subcu Full code Text document was generated using Serviceful voice recognition software. It may contain grammatical or spelling errors. Kindly contact undersigned for clarification of any documentation item in question. History of Present Illness Chief Complaint: Let facial numbness Primary Care Provider: Alok Amaya DO History obtained from patient and records. Medical history significant for chronic diastolic heart failure (EF 55 to 60%, TTE 2022), CAD status post CABG, valvular heart disease (mild MR/TR), AAA, recent CVA, hypertension, hyperlipidemia, DM 2 on oral medications, LE DVT status post Coumadin past tobacco abuse. 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 MRI brain showed small right occipital stroke. Neurology recommended dual antiplatelet therapy for 21 days then Plavix 75 mg da julio c thereafter. Patient told to continue Lipitor. Yesterday afternoon, patient noted left cheek numbness with tolerable headache symptoms. Transient left arm clumsiness. Patient compliant with home medications. Not sure about recent tick bites. No unusual stress at home. Improving symptoms at the ER. 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 Allergies Allergy/AdvReac Type Severity Reaction Status Date / Time Iodinated Contrast Media Allergy Unknown UNKNOWN Verified 09/05/22 22:19 PER [facility] [place] MED LIST lisinopril AdvReac Intermediate Cough Verified 09/05/22 22:19 IVP DYE AdvReac Intermediate CHILLS/CAROLA Uncoded 09/05/22 22:19 RS Home Medications Medication Instructions Recorded Confirmed Type amlodipine 5 mg tablet 5 mg PO HS 02/29/20 09/05/22 History aspirin 81 mg tablet,delayed 81 mg PO HS 02/29/20 09/05/22 History release (Ayanna Low Dose Aspirin) atorvastatin 80 mg tablet 80 mg PO HS 02/29/20 09/05/22 History cholecalciferol (vitamin D3) 50 50 mcg PO HS 02/29/20 09/05/22 History mcg (2,000 unit) tablet (Vitamin D3) cyanocobalamin (vitamin B-12) 2,000 mcg sublingual HS 02/29/20 09/05/22 History 1,000 mcg sublingual tablet insulin glargine 100 unit/mL (3 50 unit subcut HS 02/29/20 09/05/22 History mL) subcutaneous pen (Basaglar KwikPen U-100 Insulin) losartan 100 mg tablet 100 mg PO HS 02/29/20 09/05/22 History metformin 500 mg tablet,extended 1,000 mg PO HS 02/29/20 09/05/22 History release 24 hr metoprolol succinate 25 mg 25 mg PO HS 02/29/20 09/05/22 History tablet,extended release 24 hr omega 5-piq-ihj-fish oil 300 1 cap PO HS 02/29/20 09/05/22 History mg-1,000 mg capsule (Fish Oil) coenzyme Q10 100 mg capsule 100 mg PO HS 09/02/22 09/05/22 History (CoQ-10) fluticasone 250 mcg-salmeterol 50 1 inh inhalation BID 09/02/22 09/05/22 History mcg/dose blistr powdr for inhalation (Advair Diskus) isosorbide mononitrate 30 mg 30 mg PO HS 09/02/22 09/05/22 History tablet,extended release 24 hr ketoconazole 2 % topical cream 1 applic topical BID 09/02/22 09/05/22 History multivitamin 1 tab PO HS 09/02/22 09/05/22 History clopidogrel 75 mg tablet 75 mg PO QAM #30 tabs 09/03/22 09/05/22 Rx Past Med/Surg History Medical History AAA (abdominal aortic aneurysm) "About 4 cm" --- follows Dr. Francisco [id number] CAD (coronary artery disease) S/p 4 vessel CABG 2001 Reports 100% occluded arteries x 2 per his most recent cath (2017 [facility]) medical management DDD (degenerative disc disease), lumbar DM type 2 (diabetes mellitus, type 2) IDDM Enlarged prostate History of cardiac murmur as a child History of depression HLD (hyperlipidemia) [place] (hard of hearing) HTN (hypertension) IBS (irritable bowel syndrome) Kidney stones Osteoarthritis TMJ (temporomandibular joint disorder) hx, several years ago, never locked. jaw pain and clicked at times. Surgical History History of ankle surgery Left History of appendectomy History of cardiac catheterization last cath ~02/2020 for [facility] -- no stents History of colonoscopy History of four vessel coronary artery bypass graft 2001 [facility] History of tonsillectomy Family History Other No family history of adverse response to anesthesia Social History (Updated 09/02/22 @ 21:37 by Brent Catalan MD) Smoking Status: Never smoker Second Hand Exposure: No; Do You Dip or Chew Tobacco: No; Hx Alcohol Use: No Hx Substance Use: No Preferred Language: Mozambican Communication Ability: Effective Regional Maintenance Manager Required: No Beliefs That Will Affect Care: None Current Living Situation: Alone Feels Safe at Home: Yes Safety Concerns: Feels Safe At This Time Assistive Devices: Glasses Review of Systems Review of Systems: As per HPI, all other systems reviewed and negative Physical Exam Physical Exam: GENERAL: Pleasant, slightly anxious, obese , no respiratory distress SKIN: Normal color, warm HEENT: Partial alopecia, bespectacled, pink palpebral conjunctivae, no ptosis, dry buccal mucosa NECK : Supple, no tenderness CHEST : CTA, no tenderness HEART : RRR, no obvious murmurs ABDOMEN: Some distention, nontender EXTREMITIES : No LE swelling/tenderness, no other conspicuous deformities noted NEUROLOGIC : Coherent, no facial asymmetry, no other gross focality Results & Data Results & Data Vital Signs (Past 12 Hours) Vital Signs Temp Pulse Resp BP Pulse Ox O2 Del Method 09/06/22 02:30 63 16 09/06/22 02:00 61 16 145/85 H 09/06/22 01:56 72 09/06/22 01:00 71 14 157/100 H 94 09/06/22 00:00 71 16 151/90 H 95 Room Air 09/05/22 23:00 75 17 175/100 H 94 Room Air 09/05/22 22:00 76 19 162/86 H 94 Room Air 09/05/22 21:58 84 09/05/22 21:28 36.6 C 90 18 192/87 H 93 Room Air Laboratory Results Laboratory Results WBC 9.28 K/ul (4.8-10.8) 09/05/22 21:40 RBC 4.60 M/uL (4.70-6.10) L 09/05/22 21:40 Hgb 15.1 g/dl (14.0-18.0) 09/05/22 21:40 Hct 41.7 % (42.0-52.0) L 09/05/22 21:40 MCV 90.7 fL (80.0-100.0) 09/05/22 21:40 MCH 32.8 pg (25.0-34.0) 09/05/22 21:40 MCHC 36.2 g/dL (32.0-36.0) H 09/05/22 21:40 RDW Std Deviation 40.7 fL (36.4-46.3) 09/05/22 21:40 RDW Coeff of Jean Pierre 12.3 % (11.5-14.5) 09/05/22 21:40 Plt Count 156 K/uL (130-400) 09/05/22 21:40 MPV 9.7 fL (9.4-12.4) 09/05/22 21:40 PT 10.9 Seconds (9.0-12.0) 09/05/22 21:40 INR 1.0 (0.9-1.1) 09/05/22 21:40 APTT 23.4 Seconds (21.0-31.0) 09/05/22 21:40 PTT Ratio 0.8 09/05/22 21:40 Sodium 140 mmol/L (136-145) 09/05/22 21:40 Potassium 3.6 mmol/L (3.5-5.1) 09/05/22 21:40 Chloride 106 mmol/L (98-107) 09/05/22 21:40 Carbon Dioxide 25 mmol/L (21-32) 09/05/22 21:40 Anion Gap 9 (3-11) 09/05/22 21:40 BUN 17 mg/dl (6-23) 09/05/22 21:40 Creatinine 0.92 mg/dl (0.6-1.4) 09/05/22 21:40 Est Cr Clr Drug Dosing 83.8 ml/min 09/05/22 21:40 Est GFR ( Amer) 92.0 ml/min 09/05/22 21:40 Est GFR (Non-Af Amer) 79.4 ml/min 09/05/22 21:40 BUN/Creatinine Ratio 18.5 (10-20) 09/05/22 21:40 Glucose 121 mg/dl (70-99(Fasting)) H 09/05/22 21:40 Calcium 9.9 mg/dl (8.6-10.3) 09/05/22 21:40 Magnesium 2.1 mg/dl (1.7-2.4) 09/05/22 21:40 Total Bilirubin 1.0 mg/dl (0.2-1.0) 09/05/22 21:40 AST 29 U/L (13-39) 09/05/22 21:40 ALT 35 U/L (7-52) 09/05/22 21:40 Alkaline Phosphatase 97 U/L (34-104) 09/05/22 21:40 Total Protein 7.4 gm/dl (6.0-8.3) 09/05/22 21:40 Albumin 4.7 gm/dl (3.4-5.0) 09/05/22 21:40 Globulin 2.7 gm/dl (2.5-4.0) 09/05/22 21:40 Albumin/Globulin Ratio 1.7 (0.9-2) 09/05/22 21:40 TSH 2.889 uIu/ml (0.300-4.500) 09/06/22 01:41 SARS-CoV-2, RNA, NAAT NEGATIVE (NEGATIVE) 09/06/22 00:[address] 09/05/22 22:49 Exam(s): CT HEAD Without Contrast EXAM: CT Head Without Intravenous Contrast CLINICAL HISTORY: Reason for exam: facial numbness, recent cva. TECHNIQUE: Axial computed tomography images of the head/brain without intravenous contrast. CTDI is 38.17 mGy and DLP is 625.8 mGy-cm. Automated exposure control was utilized for the study. A dose lowering technique was utilized adhering to the principles of ALARA. COMPARISON: Dated 09/02/22. MRI dated 09/02/22 is also reviewed. FINDINGS: Brain: The cerebral and cerebellar sulci are mildly prominent consistent with mild brain atrophy. There are a few areas of decreased attenuation in the deep cerebral white matter consistent with mild small vessel ischemic/degenerative changes. No hemorrhage. Ventricles: Unremarkable. No ventriculomegaly. Bones/joints: Unremarkable. No acute fracture. Soft tissues: Unremarkable. Vasculature: Atherosclerotic disease. Sinuses: Unremarkable as visualized. No acute sinusitis. Mastoid air cells: Unremarkable as visualized. No mastoid effusion. IMPRESSION: No acute findings in the head/brain. Electronically signed by: Amaury Bustos MD 09/05/22 23:11 PM Diagnostic Findings EKG as per my interpretation :Rate 75, NSR, normal axis, T wave abnormalities inferior leads
[2022-09-06] MEDS ORDERED: ACETAMINOPHEN 325 MG TAB PO PRN (04:47)
[2022-09-06] MEDS ORDERED: DEXTROSE 50% 50 ML SYRINGE IV PRN (04:47)
[2022-09-06] MEDS ORDERED: GLUCAGON FOR INJ 1 MG VIAL SQ PRN (04:47)
[2022-09-06] MEDS ORDERED: GLUCOSE 40% GEL 15 GM TUBE PO PRN (04:47)
[2022-09-06] MEDS ORDERED: GLUCOSE 10 TAB/TUBE PO PRN (04:47)
[2022-09-06] MEDS ORDERED: CARBOHYDRATES FOR HYPOGLYCEMIA PO PRN (04:47)
[2022-09-06] MEDS: INSULIN ASPART PER UNIT CHARGE SC SCH ×2 (05:02→13:15)
[2022-09-06 05:11] LABS: BUN Creatinine Ratio 18.8 (10-20); Basophils # (auto) 0.02 K/uL (0-0.2); Basophils % (auto) 0.3 %; Creatinine Clr Calc Pharmacy 96.4 ml/min; Eosinophils # (auto) 0.17 K/uL (0-0.50); Eosinophils % (auto) 2.3 %; Est GFR (African American) 99.2 ml/min; Est GFR (Non-African American) 85.6 ml/min; Hematocrit (blood only) 38.7 % (42.0-52.0); Immature Granulocytes # (auto) 0.02 K/uL (0.01-0.20); Immature Granulocytes % (auto) 0.3 %; Lymphocytes # (auto) 1.17 K/uL (1.2-3.4); Lymphocytes % (auto) 15.9 %; Mean Corpuscular Hemoglobin 33.3 pg (25.0-34.0); Mean Corpuscular Hgb Conc 36.2 g/dL (32.0-36.0); Mean Corpuscular Volume 91.9 fL (80.0-100.0); Mean Platelet Volume 9.7 fL (9.4-12.4); Monocytes # (auto) 0.63 K/uL (0.11-0.59); Monocytes % (auto) 8.6 %; Neutrophils # (auto) 5.35 K/uL (1.40-6.50); Neutrophils % (auto) 72.6 %; Platelet Count 133 K/uL (130-400); Potassium 3.5 mmol/L (3.5-5.1); RDW Standard Deviation 40.6 fL (36.4-46.3); Red Blood Count 4.21 M/uL (4.70-6.10); White Blood Count 7.36 K/ul (4.8-10.8)
--- NOTE | 2022-09-06 06:39 | Magnetic Resonance Report ---
Exam(s): MRI HEAD Without Contrast EXAM: MR Head Without Intravenous Contrast CLINICAL HISTORY: TIA. TECHNIQUE: Magnetic resonance images of the head/brain without intravenous contrast in multiple planes. COMPARISON: MRI head 09/02/2022 FINDINGS: Brain: No acute infarct. No intracranial hemorrhage, mass-effect or midline shift. Mild periventricular white matter T2/flair signal abnormalities are most consistent with chronic microangiopathy. Ventricles: Unremarkable. No ventriculomegaly. Bones/joints: Unremarkable. Sinuses: Unremarkable as visualized. No acute sinusitis. Mastoid air cells: Unremarkable as visualized. No mastoid effusion. Orbits: Unremarkable as visualized. IMPRESSION: No acute findings in the head/brain. Electronically signed by: Christen Douglas MD 09/06/22 06:37 AM
--- NOTE | 2022-09-06 06:40 | Magnetic Resonance Report ---
Exam(s): MRA HEAD Without Contrast EXAM: MR Angiography Head Without Intravenous Contrast CLINICAL HISTORY: TIA TECHNIQUE: Magnetic resonance angiography images of the head without intravenous contrast. COMPARISON: No relevant prior studies available. FINDINGS: Right internal carotid artery: No acute findings. Intracranial segment is patent with no significant stenosis. No aneurysm. Right anterior cerebral artery: Unremarkable. No occlusion or significant stenosis. No aneurysm. Right middle cerebral artery: Unremarkable. No occlusion or significant stenosis. No aneurysm. Right posterior cerebral artery: Unremarkable. No occlusion or significant stenosis. No aneurysm. Right vertebral artery: Unremarkable as visualized. Left internal carotid artery: No acute findings. Intracranial segment is patent with no significant stenosis. No aneurysm. Left anterior cerebral artery: Unremarkable. No occlusion or significant stenosis. No aneurysm. Left middle cerebral artery: Unremarkable. No occlusion or significant stenosis. No aneurysm. Left posterior cerebral artery: Unremarkable. No occlusion or significant stenosis. No aneurysm. Left vertebral artery: Unremarkable as visualized. Basilar artery: Unremarkable. No occlusion or significant stenosis. No aneurysm. IMPRESSION: No acute finding of the arteries of the head. Electronically signed by: Christen Douglas MD 09/06/22 06:39 AM
[2022-09-06] MEDS ORDERED: CLOPIDOGREL BISULFATE 75 MG TAB PO SCH (09:00)
[2022-09-06] MEDS ORDERED: ENOXAPARIN INJ 40 MG/0.4 ML SYR SQ SCH (09:00)
--- NOTE | 2022-09-06 10:12 | Neurology Consultation ---
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 No new stroke seen on MRI, prior stroke not seen due to normalization of the DWI at this timeframe. Continue prior secondary stroke prevention measures. No further workup recommended. Patient counseled that left sided sensory symptoms may continue to flucutate post-stroke but he should return with new stroke symptoms including weakness, balance, speech, vision changes. -- No further neurologic workup -- Can be discharged from a neurologic perspective Telehealth Consultation Telehealth Information Telehealth Information: I performed this visit using a real-time telehealth connection between my location and the patients location ([facility]). After connecting through interactive tele-video, patient was identified by name and date of and/or wristband check.Patient (or authorized healthcare signs and displays sales representative) was informed that this was a telemedicine visit and it was being conducted confidentially over secure lines. My office door was closed and no one else was present in the room with me.Patient (or authorized healthcare signs and displays sales representative) provided consent to proceed with the visit, expressed an understanding of privacy and security of the telemedicine visit, and gave permission to have a hospital signs and displays sales representative in the room in order to assist with the visit and to conduct portions of the visit, as needed. I informed the patient (or authorized healthcare signs and displays sales representative) that I reviewed their record a nd presented the opportunity for them to ask any questions regarding the visit today. The patient agreed to participate. History of Present Illness Reason for Consultation: L facial numbness Requesting Physician: Dr. Burnett Attending Physician: Edmundo Bunrett MD History of Present Illness Brady Shahid is a 77 yo M presenting with L facial numbness, discharged yesterday for episodes of L visual field loss and left sided tingling parasthesias. He notes that the numbness in the L face is not resolved and had a different character than when he had his last stroke. Denies any other symptoms including new weakness, speech changes or vision changes. Saw ophthalmology yesterday who did not detect any residual field deficit. Allergies Allergy/AdvReac Type Severity Reaction Status Date / Time Iodinated Contrast Media Allergy Unknown UNKNOWN Verified 09/05/22 22:19 PER [facility] MED LIST lisinopril AdvReac Intermediate Cough Verified 07/12/23 22:19 IVP DYE AdvReac Intermediate CHILLS/CAROLA Uncoded 09/05/22 22:19 RS Home Medications Medication Instructions Recorded Confirmed Type amlodipine 5 mg tablet 5 mg PO HS 02/29/20 09/05/22 History aspirin 81 mg tablet,delayed 81 mg PO HS 02/29/20 09/05/22 History release (Ayanna Low Dose Aspirin) atorvastatin 80 mg tablet 80 mg PO HS 02/29/20 09/05/22 History cholecalciferol (vitamin D3) 50 50 mcg PO HS 02/29/20 09/05/22 History mcg (2,000 unit) tablet (Vitamin D3) cyanocobalamin (vitamin B-12) 2,000 mcg sublingual HS 02/29/20 09/05/22 History 1,000 mcg sublingual tablet insulin glargine 100 unit/mL (3 50 unit subcut HS 02/29/20 09/05/22 History mL) subcutaneous pen (Basaglar KwikPen U-100 Insulin) losartan 100 mg tablet 100 mg PO HS 02/29/20 09/05/22 History metformin 500 mg tablet,extended 1,000 mg PO HS 02/29/20 09/05/22 History release 24 hr metoprolol succinate 25 mg 25 mg PO HS 02/29/20 09/05/22 History tablet,extended release 24 hr omega 7-aae-eze-fish oil 300 1 cap PO HS 02/29/20 09/05/22 History mg-1,000 mg capsule (Fish Oil) coenzyme Q10 100 mg capsule 100 mg PO HS 09/02/22 09/05/22 History (CoQ-10) fluticasone 250 mcg-salmeterol 50 1 inh inhalation BID 09/02/22 09/05/22 History mcg/dose blistr powdr for inhalation (Advair Diskus) isosorbide mononitrate 30 mg 30 mg PO HS 09/02/22 09/05/22 History tablet,extended release 24 hr ketoconazole 2 % topical cream 1 applic topical BID 09/02/22 09/05/22 History multivitamin 1 tab PO HS 09/02/22 09/05/22 History clopidogrel 75 mg tablet 75 mg PO QAM #30 tabs 09/03/22 09/05/22 Rx Patient History Medical History AAA (abdominal aortic aneurysm) "About 4 cm" --- follows Dr. Francisco [id number] CAD (coronary artery disease) S/p 4 vessel CABG 2001 Reports 100% occluded arteries x 2 per his most recent cath (2017 [facility]) medical management DDD (degenerative disc disease), lumbar DM type 2 (diabetes mellitus, type 2) IDDM Enlarged prostate History of cardiac murmur as a child History of depression HLD (hyperlipidemia) [place] (hard of hearing) HTN (hypertension) IBS (irritable bowel syndrome) Kidney stones Osteoarthritis TMJ (temporomandibular joint disorder) hx, several years ago, never locked. jaw pain and clicked at times. Surgical History History of ankle surgery Left History of appendectomy History of cardiac catheterization last cath ~02/2020 for [facility] -- no stents History of colonoscopy History of four vessel coronary artery bypass graft 2001 [facility] History of tonsillectomy Family History Other No family history of adverse response to anesthesia Social History (Updated 09/02/22 @ 21:37 by Brent Catalan MD) Smoking Status: Never smoker Second Hand Exposure: No; Do You Dip or Chew Tobacco: No; Hx Alcohol Use: No Hx Substance Use: No Preferred Language: Estonian Communication Ability: Effective Sales Route Driver Required: No Beliefs That Will Affect Care: None Current Living Situation: Alone Feels Safe at Home: Yes Safety Concerns: Feels Safe At This Time Assistive Devices: Glasses Review of Systems +L facial numbness Physical Exam Neurological Examination: Mental Status: Awake and alert. Oriented to person, place, and time. Fluent. Comprehension intact. Affect appropriate. Cranial Nerves: II: pupils 3/3 to 2/2 III/IV/: Versions intact without nystagmus, no gaze preference. VII: Facial expression symmetric VIII: Hearing intact to voice Motor: Strength was symmetric and antigravity throughout. Pronator drift was absent. There were no abnormal movements. Results & Data Vital Signs (Past 12 Hours) Vital Signs Pulse Pulse Resp BP BP Pulse Ox Pulse Ox 09/06/22 07:31 64 16 135/76 92 09/06/22 07:31 64 18 135/76 92 09/06/22 06:54 66 09/06/22 04:47 94 09/06/22 04:40 65 18 163/92 H 94 09/06/22 02:30 63 16 09/06/22 02:00 61 16 145/85 H 09/06/22 01:56 72 09/06/22 01:00 71 14 157/100 H 94 09/06/22 00:00 71 16 151/90 H 95 09/05/22 23:00 75 17 175/100 H 94 O2 Del Method O2 Del Method O2 Flow Rate 09/06/22 07:31 Room Air 09/06/22 07:31 Room Air 09/06/22 06:54 09/06/22 04:47 Room Air 0 09/06/22 04:40 Room Air 09/06/22 02:30 09/06/22 02:00 09/06/22 01:56 09/06/22 01:00 09/06/22 00:00 Room Air 09/05/22 23:00 Room Air Laboratory Results Abnormal lab results 09/05/22 09/05/22 09/06/22 Range/Units 21:40 21:40 04:33 RBC 4.60 L 4.21 L (4.70-6.10) M/uL Hct 41.7 L 38.7 L (42.0-52.0) % MCHC 36.2 H 36.2 H (32.0-36.0) g/dL Lymph # (Auto) 1.17 L (1.2-3.4) K/uL [place] # (Auto) 0.63 H (0.11-0.59) K/uL Glucose 121 H (70-99(Fasting)) mg/dl POC Glucose (70-99) mg/dl 09/06/22 09/06/22 09/06/22 Range/Units 04:33 04:52 09:03 RBC (4.70-6.10) M/uL Hct (42.0-52.0) % MCHC (32.0-36.0) g/dL Lymph # (Auto) (1.2-3.4) K/uL [place] # (Auto) (0.11-0.59) K/uL Glucose 112 H (70-99(Fasting)) mg/dl POC Glucose 110 H 114 H (70-99) mg/dl Diagnostic Findings MRI brain - Unremarkable
--- NOTE | 2022-09-06 12:21 | Electrocardiogram Report ---
Test Reason : Blood Pressure : / mmHG Vent. Rate : 076 BPM Atrial Rate : 076 BPM P-R Int : 194 ms QRS Dur : 100 ms QT Int : 392 ms P-R-T Axes : 043 020 006 degrees QTc Int : 441 ms Normal sinus rhythm with sinus arrhythmia Normal ECG When compared with ECG of 02-SEP-2022 19:20, Premature ventricular complexes are no longer Present Inverted T waves have replaced nonspecific T wave abnormality in Inferior leads Confirmed by Papo Oconnell ([id number]) on 09/06/2022 12:20:46 PM Referred By: REFERRED SELF Confirmed By:Khris Oconnell
--- NOTE | 2022-09-06 14:38 | Hospitalist Progress Note ---
Date of Service September 06, 2022 Assessment & Plan (1) TIA (transient ischemic attack): Plan: Strokelike symptoms Presents with left facial numbness Symptoms thought to be secondary to prior CVA. --MRI Brain:No acute findings in the head/brain. --MRA:No acute finding of the arteries of the head. Vitamin B12 levels pending PT OT, speech therapy eval Appreciate neurology input Continue aspirin, Plavix, Lipitor Advised to follow-up with neurologist as outpatient Plan to discharge home today HTN Resume home medications Monitor BP Other Chronic conditions: Chronic diastolic heart failure CAD S/P CABG valvular heart disease (mild MR/TR) AAA, last outpatient measurement of 4.1 cm December 2021, patient follows with [facility] vascular surgery Hyperlipidemia Continue home medication DM II Last HbA1c 6.2 Continue insulin while hospitalized Monitor blood glucose levels LE DVT S/P Coumadin past tobacco abuse As per records DVT prophylaxis Lovenox SQ CODE STATUS Full code Admission and Anticipated Discharge Date Admission Date: September 06, 2022 Subjective Patient is seen and examined at bedside Left facial numbness much improved Reports mild left leg weakness from prior CVA Denies any chest pain, dyspnea, dizziness, nausea, vomiting, abdominal pain Discussed with neurology today Plan to be discharged home today Review of Systems Review of Systems: All systems reviewed & are unremarkable except as noted in Subjective Physical Exam Physical Exam: Physical Exam: Vitals signs as noted above General Appearance:Moderately built and nourished, no apparent distress Head: normocephalic, Atraumatic Eyes: normal inspection, EOMI Neck: supple, Trachea midline Respiratory/Chest: Normal breath sounds, CTA, No accessory muscle use Cardiovascular: S1, S2, No murmur Abdomen/GI:Soft, Non tender, Bowel sounds present Extremities/Musculoskeletal:normal inspection, no edema Neurologic/Psych:AAOX3, minimal left lower extremity weakness when compared to right Skin: normal color, warm Results & Data Results & Data Vital Signs (Past 12 Hours) Vital Signs Pulse Pulse Resp BP BP Pulse Ox Pulse Ox 09/06/22 07:31 64 16 135/76 92 09/06/22 07:31 64 18 135/76 92 09/06/22 06:54 66 09/06/22 04:47 94 09/06/22 04:40 65 18 163/92 H 94 O2 Del Method O2 Del Method O2 Flow Rate 09/06/22 07:31 Room Air 09/06/22 07:31 Room Air 09/06/22 06:54 09/06/22 04:47 Room Air 0 09/06/22 04:40 Room Air Laboratory Results Short CBC 09/05/22 09/06/22 Range/Units 21:40 04:33 WBC 9.28 7.36 (4.8-10.8) K/ul Hgb 15.1 14.0 (14.0-18.0) g/dl Hct 41.7 L 38.7 L (42.0-52.0) % Plt Count 156 133 (130-400) K/uL BMP 09/05/22 09/06/22 21:40 04:33 Sodium 140 140 Potassium 3.6 3.5 Chloride 106 106 Carbon Dioxide 25 25 BUN 17 15 Creatinine 0.92 0.80 Glucose 121 H 112 H Calcium 9.9 9.0 Liver Function 09/05/22 Range/Units 21:40 Total Bilirubin 1.0 (0.2-1.0) mg/dl AST 29 (13-39) U/L ALT 35 (7-52) U/L Alkaline Phosphatase 97 (34-104) U/L Albumin 4.7 (3.4-5.0) gm/dl
--- NOTE | 2022-09-06 15:01 | Discharge Summary ---
Date of Service September 06, 2022 Admission HPI Per Admitting Provider History obtained from patient and records. Medical history significant for chronic diastolic heart failure (EF 55 to 60%, TTE 2022), CAD status post CABG, valvular heart disease (mild MR/TR), AAA, recent CVA, hypertension, hyperlipidemia, DM 2 on oral medications, LE DVT status post Coumadin past tobacco abuse. 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 MRI brain showed small right occipital stroke. Neurology recommended dual antiplatelet therapy for 21 days then Plavix 75 mg daily thereafter. Patient told to continue Lipitor. Yesterday afternoon, patient noted left cheek numbness with tolerable headache symptoms. Transient left arm clumsiness. Patient compliant with home medications. Not sure about recent tick bites. No unusual stress at home. Improving symptoms at the ER. 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 Principal Diagnosis Left facial numbness Strokelike symptoms Discharge Data Allergies Allergy/AdvReac Type Severity Reaction Status Date / Time Iodinated Contrast Media Allergy Unknown UNKNOWN Verified 09/05/22 22:19 PER [facility] MED LIST lisinopril AdvReac Intermediate Cough Verified 09/05/22 22:19 IVP DYE AdvReac Intermediate CHILLS/CAROLA Uncoded 09/05/22 22:19 RS Consultations 09/06/22 00:49 ED Decision to Admit Stat 09/06/22 04:47 Consult Neurology Routine Procedures Performed Laboratory Results WBC 7.36 K/ul (4.8-10.8) 09/06/22 04:33 RBC 4.21 M/uL (4.70-6.10) L 09/06/22 04:33 Hgb 14.0 g/dl (14.0-18.0) 09/06/22 04:33 Hct 38.7 % (42.0-52.0) L 09/06/22 04:33 MCV 91.9 fL (80.0-100.0) 09/06/22 04:33 MCH 33.3 pg (25.0-34.0) 09/06/22 04:33 MCHC 36.2 g/dL (32.0-36.0) H 09/06/22 04:33 RDW Std Deviation 40.6 fL (36.4-46.3) 09/06/22 04:33 RDW Coeff of Jean Pierre 12.0 % (11.5-14.5) 09/06/22 04:33 Plt Count 133 K/uL (130-400) 09/06/22 04:33 MPV 9.7 fL (9.4-12.4) 09/06/22 04:33 Immature Gran % (Auto) 0.3 % 09/06/22 04:33 Neut % (Auto) 72.6 % 09/06/22 04:33 Lymph % (Auto) 15.9 % 09/06/22 04:33 Logan % (Auto) 8.6 % 09/06/22 04:33 Eos % (Auto) 2.3 % 09/06/22 04:33 Baso % (Auto) 0.3 % 09/06/22 04:33 Neut # (Auto) 5.35 K/uL (1.40-6.50) 09/06/22 04:33 Lymph # (Auto) 1.17 K/uL (1.2-3.4) L 09/06/22 04:33 Logan # (Auto) 0.63 K/uL (0.11-0.59) H 09/06/22 04:33 Eos # (Auto) 0.17 K/uL (0-0.50) 09/06/22 04:33 Baso # (Auto) 0.02 K/uL (0-0.2) 09/06/22 04:33 Immature Gran # (Auto) 0.02 K/uL (0.01-0.20) 09/06/22 04:33 PT 10.9 Seconds (9.0-12.0) 09/05/22 21:40 INR 1.0 (0.9-1.1) 09/05/22 21:40 APTT 23.4 Seconds (21.0-31.0) 09/05/22 21:40 PTT Ratio 0.8 09/05/22 21:40 Sodium 140 mmol/L (136-145) 09/06/22 04:33 Potassium 3.5 mmol/L (3.5-5.1) 09/06/22 04:33 Chloride 106 mmol/L (98-107) 09/06/22 04:33 Carbon Dioxide 25 mmol/L (21-32) 09/06/22 04:33 Anion Gap 9 (3-11) 09/06/22 04:33 BUN 15 mg/dl (6-23) 09/06/22 04:33 Creatinine 0.80 mg/dl (0.6-1.4) 09/06/22 04:33 Est Cr Clr Drug Dosing 96.4 ml/min 09/06/22 04:33 Est GFR ( Amer) 99.2 ml/min 09/06/22 04:33 Est GFR (Non-Af Amer) 85.6 ml/min 09/06/22 04:33 BUN/Creatinine Ratio 18.8 (10-20) 09/06/22 04:33 Glucose 112 mg/dl (70-99(Fasting)) H 09/06/22 04:33 POC Glucose 169 mg/dl (70-99) H 09/06/22 13:11 Calcium 9.0 mg/dl (8.6-10.3) 09/06/22 04:33 Magnesium 2.1 mg/dl (1.7-2.4) 09/05/22 21:40 Total Bilirubin 1.0 mg/dl (0.2-1.0) 09/05/22 21:40 AST 29 U/L (13-39) 09/05/22 21:40 ALT 35 U/L (7-52) 09/05/22 21:40 Alkaline Phosphatase 97 U/L (34-104) 09/05/22 21:40 Total Protein 7.4 gm/dl (6.0-8.3) 09/05/22 21:40 Albumin 4.7 gm/dl (3.4-5.0) 09/05/22 21:40 Globulin 2.7 gm/dl (2.5-4.0) 09/05/22 21:40 Albumin/Globulin Ratio 1.7 (0.9-2) 09/05/22 21:40 TSH 2.889 uIu/ml (0.300-4.500) 09/06/22 01:41 SARS-CoV-2, RNA, NAAT NEGATIVE (NEGATIVE) 09/06/22 00:[address] 09/05/22 22:49 Exam(s): CT HEAD Without Contrast EXAM: CT Head Without Intravenous Contrast CLINICAL HISTORY: Reason for exam: facial numbness, recent cva. TECHNIQUE: Axial computed tomography images of the head/brain without intravenous contrast. CTDI is 38.17 mGy and DLP is 625.8 mGy-cm. Automated exposure control was utilized for the study. A dose lowering technique was utilized adhering to the principles of ALARA. COMPARISON: Dated 09/02/22. MRI dated 09/02/22 is also reviewed. FINDINGS: Brain: The cerebral and cerebellar sulci are mildly prominent consistent with mild brain atrophy. There are a few areas of decreased attenuation in the deep cerebral white matter consistent with mild small vessel ischemic/degenerative changes. No hemorrhage. Ventricles: Unremarkable. No ventriculomegaly. Bones/joints: Unremarkable. No acute fracture. Soft tissues: Unremarkable. Vasculature: Atherosclerotic disease. Sinuses: Unremarkable as visualized. No acute sinusitis. Mastoid air cells: Unremarkable as visualized. No mastoid effusion. IMPRESSION: No acute findings in the head/brain. Electronically signed by: Amaury Bustos MD 09/05/22 23:11 PM Brain MRI 09/06/22 03:04 Exam(s): MRI HEAD Without Contrast EXAM: MR Head Without Intravenous Contrast CLINICAL HISTORY: TIA. TECHNIQUE: Magnetic resonance images of the head/brain without intravenous contrast in multiple planes. COMPARISON: MRI head 09/02/2022 FINDINGS: Brain: No acute infarct. No intracranial hemorrhage, mass-effect or midline shift. Mild periventricular white matter T2/flair signal abnormalities are most consistent with chronic microangiopathy. Ventricles: Unremarkable. No ventriculomegaly. Bones/joints: Unremarkable. Sinuses: Unremarkable as visualized. No acute sinusitis. Mastoid air cells: Unremarkable as visualized. No mastoid effusion. Orbits: Unremarkable as visualized. IMPRESSION: No acute findings in the head/brain. Electronically signed by: Christen Douglas MD 09/06/22 06:37 AM Head MRA 09/06/22 03:04 Exam(s): MRA HEAD Without Contrast EXAM: MR Angiography Head Without Intravenous Contrast CLINICAL HISTORY: TIA TECHNIQUE: Magnetic resonance angiography images of the head without intravenous contrast. COMPARISON: No relevant prior studies available. FINDINGS: Right internal carotid artery: No acute findings. Intracranial segment is patent with no significant stenosis. No aneurysm. Right anterior cerebral artery: Unremarkable. No occlusion or significant stenosis. No aneurysm. Right middle cerebral artery: Unremarkable. No occlusion or significant stenosis. No aneurysm. Right posterior cerebral artery: Unremarkable. No occlusion or significant stenosis. No aneurysm. Right vertebral artery: Unremarkable as visualized. Left internal carotid artery: No acute findings. Intracranial segment is patent with no significant stenosis. No aneurysm. Left anterior cerebral artery: Unremarkable. No occlusion or significant stenosis. No aneurysm. Left middle cerebral artery: Unremarkable. No occlusion or significant stenosis. No aneurysm. Left posterior cerebral artery: Unremarkable. No occlusion or significant stenosis. No aneurysm. Left vertebral artery: Unremarkable as visualized. Basilar artery: Unremarkable. No occlusion or significant stenosis. No aneurysm. IMPRESSION: No acute finding of the arteries of the head. Electronically signed by: Christen Douglas MD 09/06/22 06:39 AM Ordered Studies 09/05/22 22:49 CT head/brain wo con Stat 09/06/22 03:04 MRI Angio Brain [MR angio head wo con] Stat MRI Brain [MR brain wo con] Stat Hospital Course (1) TIA (transient ischemic attack): Strokelike symptoms Presents with left facial numbness Symptoms thought to be secondary to prior CVA. --MRI Brain:No acute findings in the head/brain. --MRA:No acute finding of the arteries of the head. Vitamin B12 levels pending PT OT, speech therapy eval Appreciate neurology input Continue aspirin, Plavix, Lipitor Advised to follow-up with neurologist as outpatient Plan to discharge home today HTN Resume home medications Monitor BP Other Chronic conditions: Chronic diastolic heart failure CAD S/P CABG valvular heart disease (mild MR/TR) AAA, last outpatient measurement of 4.1 cm December 2021, patient follows with [facility] vascular surgery Hyperlipidemia Continue home medication DM II Last HbA1c 6.2 Continue insulin while hospitalized Monitor blood glucose levels LE DVT S/P Coumadin past tobacco abuse As per records DVT prophylaxis Lovenox SQ CODE STATUS Full code Total Time Total Time Spent Total Time Spent (In Minutes): 43 minutes Discharge Plan Discharge Items Patient Disposition: Home - Self-Care Reason For Visit: TIA Discharge Diagnosis: Left facial numbness Strokelike symptoms Activity: Per Instructions section Exercise/Sports: Gradually increase as tolerated Non-emergency contact: Primary Care Provider and Neurologist Call non-emergency contact if: you have any medication questions, your symptoms worsen, your pain is concerning for you and you have a fever Follow-up/Referrals: Madhuri Watts PA-C [Physician Fitness Teacher] - (Date & Time 10/11/2022 11:20 AM Provider Madhuri Watts PA-C Department Neurology [facility] ) Alok Amaya DO [Primary Care Provider] - (Date & Time 09/10/2022 11:00 AM Provider Bhavin Martinez III, MD Department Family Practice [facility] ) Diet: Carb Consistent or DM2 and Heart Healthy Addtl Attending Provider Instructions: Follow-up with your primary care physician and neurologist as scheduled. Seek immediate medical attention if your symptoms reoccur or worsen Please take all medications as instructed on discharge list below. Please call if you have any questions or problems. You can reach a [facility] hospitalist on duty at [facility] 24 hours a day by calling [phone] Risk Factors for Stroke: You can reduce your chances of stroke by working with your medical provider to adopt a healthy lifestyle. Some specific ways to lower your chance of stroke are: * If you are a smoker, now is the time to stop smoking cigarettes * If you are diabetic, improve the control of your blood sugars * Avoid excessive amounts of alcohol * Control high blood pressure * Lose weight if you are overweight * Be sure to lead an active lifestyle * Eat a healthy diet low in salt, cholesterol and fat You should know about other risk factors for stroke that you are unable to control. These include: * Age 55 years or older * Male gender * Certain racial groups: , or / * Family History of Stroke, Mini stroke or Heart Attack * Sickle Cell Disease Follow Up: It is important for you to keep your follow up appointments with your medical provider. Who to Call and When: Medical Emergencies: Call 911 immediately if you experience any of the following warning signs and symptoms of Stroke: * Sudden numbness or weakness of the face, arm or leg, especially on one side of the body * Sudden confusion, trouble speaking or understanding * Sudden trouble seeing in one or both eyes * Sudden trouble walking, dizziness, loss of balance or coordination * Sudden severe headache with no cause Do not delay calling 911 if you experience any warning signs or symptoms of a stroke. Delay in seeking medical attention may affect what treatments can be given to you. . Pending Studies at Discharge: No Stand-Alone Forms: My [facility], Smoking Cessation Medications and DC Order Prescriptions: Continued atorvastatin 80 mg tablet 80 mg PO HS amlodipine 5 mg tablet 5 mg PO HS metoprolol succinate 25 mg tablet extended release 24 hr 25 mg PO HS metformin 500 mg tablet extended release 24 hr 1,000 mg PO HS aspirin [Ayanna Low Dose Aspirin] 81 mg Tablet,Delayed Release (Dr/Ec) 81 mg PO HS cyanocobalamin (vitamin B-12) 1,000 mcg Tablet, Sublingual 2,000 mcg SUBLINGUAL HS losartan 100 mg tablet 100 mg PO HS insulin glargine [Basaglar KwikPen U-100 Insulin] 100 unit/mL (3 mL) Insulin Pen 50 unit SUBCUT HS cholecalciferol (vitamin D3) [Vitamin D3] 50 mcg (2,000 unit) Tablet 50 mcg PO HS omega 3-pir-knz-fish oil [Fish Oil] 300-1,000 mg Capsule 1 cap PO HS multivitamin Tablet 1 tab PO HS fluticasone propion-salmeterol [Advair Diskus] 250-50 mcg/dose blister with device 1 inh INHALATION BID isosorbide mononitrate 30 mg tablet extended release 24 hr 30 mg PO HS ketoconazole 2 % Cream 1 applic TOPICAL BID Rx Instructions: APPLY TO GROIN AREA coenzyme Q10 [CoQ-10] 100 mg Capsule 100 mg PO HS clopidogrel 75 mg Tablet 75 mg PO QAM Qty: 30 0RF Discharge Orders: Discharge Order (Routine); Ordered 09/06/22 Ordered By: Edmundo Burnett Admission Data Admit Date/Time: 09/06/22 03:07 Attending Provider: Edmundo Burnett Admit Provider: Boris Landa Primary Care Provider: Alok Amaya Other Providers: Boris Landa
[2022-09-06] MEDS ORDERED: ATORVASTATIN 40 MG TAB PO SCH (21:00)
[2022-09-06] MEDS ORDERED: LANTUS PER UNIT CHARGE SQ SCH (21:00)
[2022-09-06] MEDS ORDERED: ASPIRIN 81 MG ECTAB PO SCH (21:00)
[2022-09-06] MEDS ORDERED: METOPROLOL SUCC 25MG EXT REL TAB PO SCH (21:00)
== END 2022-09-06 19:07 | disposition home or self-care (01) ==
LOC: EDINP 21:25 → ED 21:25 → EDINP 09-06 04:48